=== PATIENT | female | born 1950 | race Caucasian/White ===

== ENCOUNTER → 2020-04-26 10:30 | Outpatient (CLI) | payer MEDICARE, SELFPAY ==
--- NOTE | ~2020-04-26 | DEXA_ITS ---
Bone Density Report Name: Tracy Hamm Age: 69 Sex: Female Ethnicity: White Date of : 1950 Indication: osteopenia; monitoring treatment; hysterectomy; Referring Provider: MIKKI ALLEN PA-C Study: Bone densitometry was performed. Exam Date: April 26, 2020 Accession number: [id number] Bone Density: Region BMD T-score Z-score Classification AP Spine (L1-L4) 1.002 -0.4 1.6 Normal Femoral Neck (Left) 0.676 -1.6 0.1 Osteopenia Total Hip (Left) 0.747 -1.6 -0.2 Osteopenia Femoral Neck (Right) 0.685 -1.5 0.2 Osteopenia Total Hip (Right) 0.767 -1.4 0.0 Osteopenia Total Hip Mean 0.757 -1.5 -0.1 Osteopenia World Health Organization criteria for BMD impression classify patients as: Normal (T-score at or above -1.0), Osteopenia (T-score between -1.0 and -2.5), or Osteoporosis (T-score at or below -2.5). 10-year Fracture Risk: FRAX not reported because: Treated for osteoporosis Previous Exams: Region Exam Age BMD T-score BMD Change BMD Change Date g/cm2 vs Baseline vs Previous AP Spine(L1-L4) 04/26/2020 69 1.002 -0.4 -0.077* 0.038* 05/08/2016 66 0.964 -0.8 -0.115* -0.115* 03/10/2010 59 1.080 0.3 Total Hip(Left) 04/26/2020 69 0.747 -1.6 -0.072* -0.002 05/08/2016 66 0.750 -1.6 -0.069* -0.069* 03/10/2010 59 0.819 -1.0 Total Hip(Right) 04/26/2020 69 0.767 -1.4 -0.069* 0.027 05/08/2016 66 0.740 -1.7 -0.096* -0.096* 03/10/2010 59 0.836 -0.9 *Denotes significance at 95% confidence level, LSC for AP Spine = 0.022 g/cm2, LSC for Total Hip = 0.027 g/cm2 Clinical Information Provided by Patient: Is being treated for osteoporosis Has used the following medications: HRT (i.e. estrogen/hormone therapy), Vitamin D, Calcium Has the following medical conditions: Hysterectomy Patient maximum height was 69 Menopause Age: 50 Does not regularly consume dairy products Drinks caffeinated beverages Onset of menses at age 15 Number of children 2 Impression: The patient has low bone mass, based on the Left Total Hip T-score. No significant bone loss was observed. Discussion: PATIENT UNDER TREATMENT WITH NO SIGNIFICANT BMD LOSS SINCE LAST EXAM. In an untreated patient, BMD typically declines with age. A lack of decline or gain is usually a sign that treatment is efficacious and fracture risk is reduced. It is important to ask pat
== END ==
PROVIDERS: PCP Family Medicine; Visit Provider Physician Assistant
DX: M85.89 Other specified disorders of bone density and structure, multiple sites (principal); Z78.0 Asymptomatic menopausal state
CPT/HCPCS: 77080

== ENCOUNTER 2020-10-17 09:41 | Outpatient (CLI) | payer MEDICARE, SELFPAY ==
--- NOTE | ~2020-10-17 | XR_ITS ---
EXAMINATION: XR chest 2V DATE: 10/17/2020 11:24 INDICATION: Gastroesophageal reflux disease. Preop. TECHNIQUE: Frontal and lateral views of the chest were obtained. COMPARISON: Chest 2 views 08/06/2013 FINDINGS: The chest demonstrates clear lungs without pneumonia, pleural effusion, or pneumothorax. Th e heart size is normal. IMPRESSION: 1. No acute cardiopulmonary disease. Reviewed, dictated and finalized at location A. R MAKING MACHINE OPERATOR
--- NOTE | 2020-10-17 10:53 | ECG_ITS ---
Measurements Intervals [place] Rate: 61 P: 62 [place]: 174 QRS: -9 QRSD: 106 T: 7 QT: 404 QTc: 408 Interpretive Statements SINUS RHYTHM LOW QRS VOLTAGE IN PRECORDIAL LEADS INCOMPLETE RIGHT BUNDLE BRANCH BLOCK BASELINE ARTIFACT- I, II, III, AVR, AVL, AVF BORDERLINE ECG Electronically Signed On 10-17-2020 11:20:15 ELECTRICAL ELECTRONICS ENGINEER by Bird Schneider D.O.
[2020-10-17 11:30] LABS: Basophils Absolute Auto 0.1 K/mm3 (0.0-0.1); Basophils Percent Auto 1.1 % (0.2-1.2); Eosinophils Absolute Auto 0.2 K/mm3 (0-0.3); Eosinophils Percent Auto 4.4 % (0-4.4); Hematocrit 39.1 % (37.0-47.0); Hemoglobin 12.9 g/dL (12.0-15.0); Immature Granulocyte Absolute 0.01 K/mm3 (0.00-0.031); Immature Granulocyte Percent A 0.2 % (0-0.5); Lymphocytes Absolute Auto 1.54 K/mm3 (0.9-3.2); Lymphocytes Percent Auto 33.9 % (18.3-44.2); Mean Corpuscular Hemoglobin 29.8 pg (26-34); Mean Corpuscular Volume 90.3 fl (80-100); Mean Platelet Volume 10.2 fl (7.4-10.4); Monocytes Absolute Auto 0.4 K/mm3 (0.1-0.6); Monocytes Percent Auto 8.1 % (2.6-8.5); Neutrophils Absolute Auto 2.4 K/mm3 (1.3-6.7); Neutrophils Percent Auto 52.3 % (45.5-73.1); Platelet Count Result 333 k/mm3 (150-375); Red Blood Count 4.33 M/mm3 (4.2-5.4); Red Cell Distribution Width 11.9 % (11.5-14.5); White Blood Count 4.5 K/mm3 (4.5-10.0)
[2020-10-17 11:39] LABS: Urine Cotinine NEGATIVE
[2020-10-17 11:42] LABS: Albumin Level 3.9 g/dL (3.5-5.1); Anion Gap 4 mmol/L (8-16); Blood Urea Nitrogen 16 mg/dL (7-17); Carbon Dioxide 32 mmol/L (22-30); Chloride 102 mmol/L (98-107); Estimated Glomerular Filt Rate > 60; Glucose 96 mg/dL (65-105); Hemoglobin A1C 5.1 % (<5.7); Potassium 4.1 mmol/L (3.4-5.0); Sodium 138 mmol/L (137-145)
== END 2020-10-17 09:42 | disposition home or self-care (01) ==
PROVIDERS: PCP Family Medicine; Visit Provider Orthopaedic Surgery
DX: Z01.818 Encounter for other preprocedural examination (principal); M17.12 Unilateral primary osteoarthritis, left knee
CPT/HCPCS: 71046; 80048; 80307; 82040; 83036; 85025; 87070; 93005

== ENCOUNTER → 2020-10-20 12:12 | Outpatient (CLI) | payer MEDICARE, SELFPAY ==
--- NOTE | ~2020-10-20 | MM_ITS ---
EXAMINATION: MM screening dominique BI w marilou HISTORY: Screening TECHNIQUE: Craniocaudal and mediolateral oblique 3-D tomosynthesis images were obtained and synthetic 2-D images were generated. CAD analysis was submitted and interpreted. COMPARISON: Comparison to multiple prior studies sequentially, with oldest reviewed study dated 09/02. BREAST PARENCHYMAL COMPOSITION: The breasts are extremely dense, which lowers the sensitivity of mamm ography. FINDINGS: There is no evidence of suspicious mass, calcification, or architectural distortion to sugg est malignancy in either breast. There has been no suspicious interval change. IMPRESSION: 1. No mammographic evidence of malignancy. 2. Recommend routine screening mammography in one year. BI-RADS Category 1: Negative Reviewed, dictated and finalized at location A. ING MACHINE SETTER
== END ==
PROVIDERS: PCP Family Medicine; Visit Provider Family Medicine
DX: Z12.31 Encounter for screening mammogram for malignant neoplasm of breast (principal)
CPT/HCPCS: 77063; 77067

== ENCOUNTER → 2020-10-29 00:44 | Outpatient (CLI) | payer MEDICARE, SELFPAY ==
[2020-10-29 18:54] LABS: SARS-CoV-2 RNA PCR Negative
== END ==
PROVIDERS: PCP Family Medicine; Visit Provider Orthopaedic Surgery
DX: Z01.812 Encounter for preprocedural laboratory examination (principal); Z20.822 Contact with and (suspected) exposure to COVID-19
CPT/HCPCS: C9803; U0003; U0005

== ENCOUNTER 2020-11-02 00:16 | Day surgery (SDC) | payer MEDICARE, SELFPAY ==
[2020-10-17 09:52] VITALS: BMI 22.8
[2020-10-17 10:48] VITALS: BP 113/77; PULSE 72; RESP 16; TEMP 36.7; O2SAT 100
--- NOTE | 2020-10-31 15:56 | PM.IMHP ---
H&P: HPI History of Present Illness Date/Time: 10/31/20 15:56 70 y/o female patient of Dr. Bravo.Patient presents today for a left total knee arthroplasty. She has been having pain in this knee for several years. She has been treating nonsurgically with anti-inflammatories as well as occasional cortisone injections. She has reached a point where she is not getting good benefit from the injections or the medicine. She has pain on a daily basis. She would like to proceed with total knee arthroplasty at this point rather continue nonsurgical treatment. <MAX Shook - Last Filed: 10/31/20 16:35> Chief Complaint: Left knee DJD <MAX Shook - Last Filed: 10/31/20 16:35> Review of Systems Review of Systems: All systems reviewed & are unremarkable except as noted in HPI and below <MAX Shook - Last Filed: 10/31/20 16:35> COUNTS INCLUDE 234 BEDS AT THE [facility] Past Medical History Medical History: Medical History (Updated 11/01/20 @ 10:02 by Rikki Guajardo DO) Anxiety disorder, unspecified Depression GERD without esophagitis Normal colonoscopy (~2009) Osteoarthritis of spine with radiculopathy, cervical region Other hyperlipidemia Vitamin D deficiency (07/25/17) <MAX Shook - Last Filed: 10/31/20 16:35> Surgical History Surgical History: Surgical History H/O: hysterectomy <MAX Shook - Last Filed: 10/31/20 16:35> Family History Family History: Family History Father Cerebrovascular accident Mother Family history of malignant neoplasm Sibling Diabetes mellitus Family history of lung cancer, Onset Age: 76 Family history of malignant neoplasm of brain <MAX Shook - Last Filed: 10/31/20 16:35> Social History Social History: Social History Smoking status: Never smoker Second hand tobacco smoke exposure: No Additional smoking assessment comments: DENIES ANY FORM OF TOBACCO USE Alcohol intake: current Drinks per week: 2 Living arrangements: with family Spiritual care concerns: No <MAX Shook - Last Filed: 10/31/20 16:35> Meds Home Medications and Allergies Home medications: Home Medications Medication Instructions Recorded Confirmed Type rosuvastatin 5 mg tablet 5 mg PO DAILY #90 tablet 04/19/20 11/02/20 Rx calcium-vitamin D3-vitamin K 1 tablet PO DAILY 10/17/20 11/02/20 History [Viactiv] cetirizine [Zyrtec] 10 mg PO DAILY 10/17/20 11/02/20 History cranberry extract-vitamin C 1 cap PO DAILY 10/17/20 11/02/20 History cyanocobalamin (vitamin B-12) 1,000 mcg PO DAILY 10/17/20 11/02/20 History escitalopram oxalate 10 mg PO QAM 10/17/20 11/02/20 History jlbuubmk-ywvmx-iiyxs-CF borate 1 tablet PO QAM 10/17/20 11/02/20 History [Move Free Joint Health] levocetirizine [24HR Allergy 5 mg PO DAILY PRN 10/17/20 11/02/20 History Relief] melatonin 5 mg PO HS PRN 10/17/20 11/02/20 History vvtqdspu-uzp-ywloxxwg-herb 124 1 ea PO DAILY 10/17/20 11/02/20 History [Airborne (ascorbic acid)] multivitamin with minerals 1 tablet PO DAILY 10/17/20 11/02/20 History [Hair,Skin and Nails] naproxen sodium [Aleve] 440 mg PO HS 10/17/20 11/02/20 History vit C,F-Yp-qkthk-lutein-zeaxan 1 cap PO DAILY 10/17/20 11/02/20 History [Healthy Eyes Lutein-Zeaxanthin] <MAX Shook - Last Filed: 10/31/20 16:35> Allergies/Adverse reactions: Allergies Allergy/AdvReac Type Severity Reaction Status Date / Time bacitracin Allergy Intermediate blisters Verified 11/02/20 10:08 [From Neosporin ([id number])] neomycin Allergy Intermediate blisters Verified 11/02/20 10:08 [From Neosporin ([id number])] polymyxin B Allergy Intermediate blisters Verified 11/02/20 10:08 [From Neosporin (ngo-[id number])] <MAX Shook - Last Filed: 10/31/20 16:
[2020-11-02] VITALS (12 sets, daily range): BP systolic 116–143; BP diastolic 55–77; PULSE 73–94; RESP 10–18; TEMP 36.3–36.6; O2SAT 96–100
--- NOTE | ~2020-11-02 | XR_ITS ---
EXAMINATION: XR knee LT 2V EXAM DATE: 11/02/2020 16:19 INDICATION: Left knee arthroplasty. TECHNIQUE: Portable frontal, crosstable lateral projections left knee obtained immediately following arthroplasty. Procedure performed by Manuel Peralta MD. FINDINGS: Patient is status post total knee arthroplasty. The orthopedic hardware is in expected po sition. There is small amount of subcutaneous gas, gas within the knee joint space. Overlying soft tissue swelling. Correlate with procedure note. IMPRESSION: Status post total left knee arthroplasty. Reviewed, dictated and finalized at location A.
[2020-11-02] MEDS: ACETAMINOPHEN 500 MG TABLET 1000 MG PO ×3 (10:15→23:41)
--- NOTE | 2020-11-02 10:24 | WPDANESEPPF ---
Anes - Initial Pre Proc Eval Procedure: Operation Date: 11/02/20 12:00 Proposed Procedures p Left Total Knee Arthroplasty - Manuel Peralta MD Date/Time: 11/02/20 10:24 Surgeon: Manuel Peralta MD Pre Op Diagnosis: OA Left Knee Patient Data Age: 70 Gender: F Height: 1.75 m Weight: 69 kg Last Vital Signs Temp 36.7 C 10/17/20 10:48 Pulse 72 10/17/20 10:48 Resp 16 10/17/20 10:48 BP 113/77 10/17/20 10:48 Pulse Ox 100 10/17/20 10:48 Allergies Allergy/AdvReac Type Severity Reaction Status Date / Time bacitracin Allergy Intermediate blisters Verified 11/02/20 10:08 [From Neosporin ([id number])] neomycin Allergy Intermediate blisters Verified 11/02/20 10:08 [From Neosporin (lvz-hes-jdaic)] polymyxin B Allergy Intermediate blisters Verified 11/02/20 10:08 [From Neosporin ([id number]-vco-[id number])] Home Medications Medication Instructions Recorded Confirmed Type rosuvastatin 5 mg tablet 5 mg PO DAILY #90 tablet 04/19/20 11/02/20 Rx calcium-vitamin D3-vitamin K 1 tablet PO DAILY 10/17/20 11/02/20 History [Viactiv] cetirizine [Zyrtec] 10 mg PO DAILY 10/17/20 11/02/20 History cranberry extract-vitamin C 1 cap PO DAILY 10/17/20 11/02/20 History cyanocobalamin (vitamin B-12) 1,000 mcg PO DAILY 10/17/20 11/02/20 History escitalopram oxalate 10 mg PO QAM 10/17/20 11/02/20 History qlgqxgom-rujsi-ktmqi-CF borate 1 tablet PO QAM 10/17/20 11/02/20 History [Move Free Joint Health] levocetirizine [24HR Allergy 5 mg PO DAILY PRN 10/17/20 11/02/20 History Relief] melatonin 5 mg PO HS PRN 10/17/20 11/02/20 History mhmlvxrt-xhm-zyvlycst-herb 124 1 ea PO DAILY 10/17/20 11/02/20 History [Airborne (ascorbic acid)] multivitamin with minerals 1 tablet PO DAILY 10/17/20 11/02/20 History [Hair,Skin and Nails] naproxen sodium [Aleve] 440 mg PO HS 10/17/20 11/02/20 History vit C,S-Xf-gmlgq-lutein-zeaxan 1 cap PO DAILY 10/17/20 11/02/20 History [Healthy Eyes Lutein-Zeaxanthin] Patient hx anesthesia problems: none Family hx anesthesia problems: none PMFSH Past Medical History Medical History (Updated 11/01/20 @ 10:02 by Rikki Guajardo DO) Anxiety disorder, unspecified Depression GERD without esophagitis Normal colonoscopy (~2009) Osteoarthritis of spine with radiculopathy, cervical region Other hyperlipidemia Vitamin D deficiency (07/25/17) Surgical History Surgical History H/O: hysterectomy Family History Family History Father Cerebrovascular accident Mother Family history of malignant neoplasm Sibling Diabetes mellitus Family history of lung cancer, Onset Age: 76 Family history of malignant neoplasm of brain Social History Social History Smoking status: Never smoker Second hand tobacco smoke exposure: No Additional smoking assessment comments: DENIES ANY FORM OF TOBACCO USE Alcohol intake: current Drinks per week: 2 Living arrangements: with family Spiritual care concerns: No Anes - Eval Final PreProcedure Day of Procedure 11/02/20 10:24 Patient weight: normal Heart: regular rate and rhythm Lungs: clear to auscultation and normal air movement Airway: Mallampati scale class II Neurological: alert and oriented Last oral intake: >/= 8 hours ASA classification: II Emergent: no Anesthetic plan: proceed Anesthesia type and monitoring: general LMA and standard monitoring Informed Consent: The patient's anesthetic plan and its attendant risks and benefits were discussed with the patient/family/POA. Questions were solicited and answers provided to the satisfaction of the patient/family/POA.
[2020-11-02] MEDS: LACTATED RINGERS 1,000 ML 30 ML IV CONT ×2 (10:33→16:07)
--- NOTE | 2020-11-02 11:39 | WPDHPUPDATE1 ---
History and Physical Update Update Date/Time: 11/02/20 11:39 History and Physical has been reviewed, including an updated exam of the patient. There are NO changes in the patient's condition. Risks, benefits, and alternatives have been discussed and questions answered. Patient agrees to proceed with procedure.
[2020-11-02] MEDS: TRANEXAMIC ACID 1,000MG/ISO100 1,000 MG/100 ML BAG 200 MG IVPB (11:42)
[2020-11-02] MEDS: ceFAZolin 2 GM/D5W 50 ML 2 GM/50 ML BAG IVPB (12:01)
[2020-11-02] MEDS: ceFAZolin SODIUM 1 GM VIAL 3 GM IRRIGATION (12:47)
--- NOTE | 2020-11-02 12:53 | PHAR ---
CHECKED WITH OR ON USING GENT BONE CEMENT WITH NEOSPORIN (NEOMYCIN) ALLERGY. WAS TOLD DR DIALLO WAS AWARE AND DID WANT TO CONTINUE WITH THE GENT BONE CEMENT
[2020-11-02] MEDS: GENTAMICIN BONE CEMENT REFOBACIN 1 EACH TOPICAL (13:36)
[2020-11-02] MEDS: ceFAZolin SODIUM 1 GM VIAL IV PUSH (15:16)
[2020-11-02] MEDS: TRANEXAMIC ACID 1,000 MG/10 ML AMPUL 1000 MG IV PUSH (15:17)
--- NOTE | 2020-11-02 16:40 | PM.PROC ---
Procedure Note - Detailed Date of procedure: 11/02/20 Pre-op diagnosis: OA Left Knee Post-op diagnosis: same Procedure performed: Left total knee arthroplasty Description of procedure: Patient was brought to the operating room and general anesthesia was administered the left knee prepped draped usual fashion. She received 2 g of Ancef weight based vancomycin 1 g of tranexamic acid preoperatively. Limb was exsanguinated tourniquet elevated to 250 than 275 mmHg. A 7 in longitudinal midline incision was used and a vastus medialis splitting approach was utilized splitting the vastus medialis at the level of the superior pole of patella. Infrapatellar and suprapatellar fat pads were excised the quadriceps synovectomy carried out. There were minimal osteophytes around the patella that were debrided and the cartilage on the patella was normal and I felt most suitable for non resurfacing. A guide chino was inserted down the femoral canal after aspiration of canal contents. The guide chino was positioned a little bit medial in the hole and I felt the 5 degree valgus guide would be appropriate and 10 mm of bone removed from the distal femur medially. This removed about 5 laterally. Next the tibial plateau was cut. We tried to make a skim cut because of absence of posterior slope and we had to recut removing another 2 mm to have the cut reach all the way to the posterior aspect of the tibial plateau which was a skim cut and alignment confirmed. This was placed in 0 degree slope. The PCL was protected and island of bone in front of the PCL preserved. At this time the medial side of the joint was 7 mm at 90? in the lateral side 13 mm. The femoral sizing guide was set at 7? of external rotation which matched [place] line exactly. Posterior referencing pin holes were placed in the femur was cut to a size 65. This was a little bit too wide medial laterally and a little bit to proud anteriorly and the proximal aspect of the [place] sitting off cortex about 2 mm. With the 67 tibial trial and 10 CR insert we had ample play in flexion both medially and laterally. The knee lacked just couple of degrees of extension with a barely positive bounce test. The tibia was sized to a 67 which fit line to line anteromedially and posterolaterally. This was punched and we trialed the 11 insert CR more appropriate in flexion. However the knee lacked about a couple of degrees in extension at this time. An additional 1 mm of bone was removed the distal femur and satisfied with the rotational alignment and flexion medial collateral balance we downsized the femur to the 62.5 which fit line to line medial to lateral and was a nice fit on the anterior cortex. And the posterior femoral osteophytes removed. We trialed and at this time the knee came out just to full extension with a negative bounce in had appropriate stability at 90? and deep flexion however I did not like where the femur sat the tibia. It was translated too far posteriorly right at the posterior lip medially. With the 10 there was excessive anterior drawer laxity and she would have had flexion stability.. Therefore I felt the best course of action was to convert to anterior stabilized. The tourniquet was released at 90 minutes. The PCL released from the intercondylar notch and a conservative central posterior capsular release performed. On trialing the 13 mm trial was appropriate now at 90? of flexion with respect anterior loom setter fourdrinier deep flexion. We were far too tight in extension again. Additional 2 mm of bone were then removed the distal femur the chamfer cuts revisited. We read trialed and once again the 13 mm trial was excellent in flexion with about 2 mm of anterior drawer at 90? without a tight feel and a mm of opening with a Galvez elevator at 90 both medially and laterally. [place] flexion was to 145?. And, the knee came out to full extension with negative bounce. In full extension we had 2 mm of medial opening 1 mm of later
--- NOTE | 2020-11-02 17:04 | SUR.PHASEI ---
PT AWAKE, RESTING QUIETLY. DENIES PAIN OR NAUSEA.
--- NOTE | 2020-11-02 18:08 | ADMGEN ---
This patient, Tracy Hamm, was admitted to Medical Room 241-01. Patient/family oriented to hospital policies and general routines including ID bracelet, bed and alarms, visiting hours, pain management, procedures, bathroom and other care routines, personal items, smoking policy, room service/diet, and visiting hours. Information on how to activate the Rapid Response Team has been discussed. Patient/Family are encouraged to report perceived risks to care and to ask questions if they do not understand what they are told or what they should do.
[2020-11-02] MEDS: SENNA/DOCUSATE SODIUM TABLET 2 TAB PO (19:30)
[2020-11-02] MEDS: oxyCODONE HCL (*CRX) 5 MG TAB IR PO ×2 (20:10→23:38)
[2020-11-02] MEDS: LORATADINE 5 MG TABLET PO (22:23)
[2020-11-02] MEDS: MELATONIN 5 MG TABLET PO (22:23)
[2020-11-03] MEDS: ONDANSETRON INJ 4 MG/2 ML VIAL IV PUSH (00:55)
[2020-11-03] MEDS: diphenhydrAMINE HCl INJ 50 MG/ML VIAL IV PUSH (00:55)
[2020-11-03 01:17] VITALS: BP 122/46; PULSE 86; RESP 16; TEMP 36.4; O2SAT 95
[2020-11-03 03:15] VITALS: BP 122/46; PULSE 86; RESP 16; TEMP 36.4; O2SAT 95
[2020-11-03] MEDS: oxyCODONE HCL (*CRX) 2.5 MG TAB IR PO ×3 (04:27→13:27)
[2020-11-03 05:06] VITALS: BP 128/58; PULSE 85; RESP 16; TEMP 36.8; O2SAT 94
[2020-11-03] MEDS: ACETAMINOPHEN 500 MG TABLET 1000 MG PO ×2 (05:19→11:24)
[2020-11-03 05:54] LABS: Anion Gap 3 mmol/L (8-16); Blood Urea Nitrogen 10 mg/dL (7-17); Carbon Dioxide 30 mmol/L (22-30); Chloride 99 mmol/L (98-107); Estimated CRCL calculation 80 ml/min; Estimated Glomerular Filt Rate > 60; Glucose 158 mg/dL (65-105); Potassium 3.9 mmol/L (3.4-5.0); Sodium 132 mmol/L (137-145)
[2020-11-03 05:55] LABS: Basophils Percent Auto 0.3 % (0.2-1.2); Hematocrit 35.6 % (37.0-47.0); Hemoglobin 11.8 g/dL (12.0-15.0); Immature Granulocyte Absolute 0.05 K/mm3 (0.00-0.031); Immature Granulocyte Percent A 0.4 % (0-0.5); Lymphocytes Absolute Auto 0.65 K/mm3 (0.9-3.2); Lymphocytes Percent Auto 4.6 % (18.3-44.2); Mean Corpuscular HGB Conc 33.1 g/dl (32-36); Mean Corpuscular Hemoglobin 30.1 pg (26-34); Mean Corpuscular Volume 90.8 fl (80-100); Mean Platelet Volume 10.4 fl (7.4-10.4); Monocytes Absolute Auto 0.4 K/mm3 (0.1-0.6); Monocytes Percent Auto 3.1 % (2.6-8.5); Neutrophils Absolute Auto 12.9 K/mm3 (1.3-6.7); Neutrophils Percent Auto 91.6 % (45.5-73.1); Platelet Count Result 341 k/mm3 (150-375); Red Blood Count 3.92 M/mm3 (4.2-5.4); White Blood Count 14.1 K/mm3 (4.5-10.0)
--- NOTE | 2020-11-03 07:16 | PM.PNORT ---
Progress Note: A&P Additional Plan POD 1 alert avss , pt was having a lot of nausea last night, doing much better this am, has been up to restroom overnight, pain is well controlled, wd-dry NVI plan to have pt work with PT today for both sessions then d/c to home this afternoon Subjective Subjective Date/Time Seen: 11/03/20 07:16 Objective Data Vital Signs Vital Signs: Vital Signs - 24 hr 11/02/20 09:54 11/02/20 16:07 11/02/20 16:20 Temperature 36.6 C 36.3 C L Pulse Rate 73 81 90 Respiratory Rate 16 10 L 16 Blood Pressure 120/77 116/68 126/76 Pulse Oximetry 99 99 98 11/02/20 16:35 11/02/20 16:50 11/02/20 17:05 Temperature Pulse Rate 90 85 88 Respiratory Rate 14 14 12 Blood Pressure 126/77 130/67 122/68 Pulse Oximetry 99 99 96 11/02/20 17:20 11/02/20 17:55 11/02/20 18:10 Temperature 36.5 C 36.3 C L Pulse Rate 86 78 92 Respiratory Rate 14 18 18 Blood Pressure 126/64 124/58 L 130/56 L Pulse Oximetry 99 96 98 11/02/20 18:45 11/02/20 19:15 11/02/20 22:28 Temperature 36.4 C 36.5 C 36.5 C Pulse Rate 93 94 94 Respiratory Rate 18 16 16 Blood Pressure 123/55 L 143/65 H 143/65 H Pulse Oximetry 96 100 100 11/03/20 01:17 11/03/20 03:15 11/03/20 05:06 Temperature 36.4 C L 36.4 C L 36.8 C Pulse Rate 86 86 85 Respiratory Rate 16 16 16 Blood Pressure 122/46 L 122/46 L 128/58 L Pulse Oximetry 95 95 94 Intake/Output Intake/Output: Intake & Output 10/31/20 11/01/20 11/02/20 11/03/20 23:59 23:59 23:59 23:59 Intake Total 950 400 Output Total 1200 Balance 950 -800 Meds/Results Medications: Active Medications Generic Name Dose Route Start Last Admin Trade Name Freq PRN Reason Stop Dose Admin Acetaminophen 1,000 mg 11/02/20 18:00 11/03/20 05:19 Acetaminophen 500 Mg Tablet PO 1,000 mg Q6HR MELODY Administration Apixaban 2.5 mg 11/03/20 09:00 Apixaban 2.5 Mg Tablet PO 11/14/20 21:01 Q12HR [facility] Celecoxib 200 mg 11/03/20 08:00 Celecoxib 200 Mg Capsule PO DAILY@0800 [facility] Cyanocobalamin 1,000 mcg 11/03/20 09:00 Cyanocobalamin 1,000 Mcg Tablet PO DAILY [facility] Diphenhydramine HCl 50 mg 11/03/20 00:41 11/03/20 00:55 Diphenhydramine Hcl Inj 50 Mg/Ml Vial IV PUSH 50 mg Q6H PRN Administration Itching Escitalopram Oxalate 10 mg 11/03/20 09:00 Escitalopram Oxalate 10 Mg Tablet PO QAM [facility] Cefazolin Sodium 1 gm in 50 mls @ 100 mls/hr 11/02/20 20:00 11/03/20 04:27 Ancef 1 Gm/D5w 50 Ml Pm IVPB 11/03/20 12:29 100 mls/hr Q8H MELODY Administration Vancomycin HCl 1,000 mg in 250 mls @ 250 mls/hr 11/02/20 22:30 11/03/20 05:21 Vancomycin 1,000 Mg/D5w 250 Ml IVPB 11/03/20 11:29 100 mls/hr Q12H [facility] Infusion Loratadine 10 mg 11/03/20 09:00 Loratadine 10 Mg Tablet PO QAM [facility] Loratadine 5 mg 11/02/20 17:45 11/02/20 22:23 Loratadine 5 Mg Tablet PO 5 mg DAILY PRN Administration Allergy Symptoms Melatonin 5 mg 11/02/20 17:30 11/02/20 22:23 Melatonin 5 Mg Tablet PO 5 mg HS PRN Administration Insomnia Morphine Sulfate 2 mg 11/02/20 17:30 Morphine Sulfate (*Crx) 2 Mg/Ml Inj IV PUSH Q1HR PRN Pain Rated 7-10 Multivitamins/Calcium 1 tablet 11/03/20 09:00 Therapeutic Multivitamins/Minerals Tab (*Bkc) PO DAILY [facility] Multivitamins/Minerals 1 tablet 11/03/20 09:00 Opti-Gen Tab PO QAM [facility] Naloxone HCl 0.1 mg 11/02/20 17:30 Naloxone Hcl 0.4 Mg/Ml Vial IV PUSH Q2M PRN Opiate Reversal Ondansetron HCl 4 mg 11/03/20 00:39 11/03/20 00:55 Ondansetron Inj 4 Mg/2 Ml Vial IV PUSH 4 mg Q6H PRN Administration Nausea And Vomiting Oxycodone HCl 5 mg 11/02/20 17:30 11/02/20 23:38 Oxycodone Hcl (*Crx) 5 Mg Tab Ir PO 5 mg Q4H PRN Administration Pain Rated 7-10 Oxycodone HCl 2.5 mg 11/03/20 01:45 11/03/20 04:27 Oxycodone Hcl (*Crx) 2.5 Mg Tab Ir PO 2.5 mg Q4HR MELODY Administration Polyethylene Glycol 17 gm
--- NOTE | 2020-11-03 07:24 | PM.DS ---
DS: Admitting Diagnosis Admitting Diagnosis Admitting Diagnosis: left knee DJD DS: Summary Hospital Course Hospital Course: stable Time Spent with Patient Time attestation: 70-year-old female who underwent left total knee arthroplasty on 11/02/20. Underwent the procedure without any complications postoperatively she had quite a bit of nausea on the evening of surgery. This was treated with some Benadryl as well as Decadron and Zofran. Nausea is completely dissipated by the morning of postop day 1. Her pain is well controlled. She is on oxycodone 2.5 mg as well as scheduled Tylenol she is also Celebrex 200 mg daily. Patient has been up to the restroom and is comfortable. She will work with Physical therapy on postop day 1 to make sure that she is walking around well and also work on range of motion. Her wound is dry, neurovascularly she is intact. She will be discharged to home on 11/03. Patient was advised to keep leg elevated at home to prevent swelling but also to her exercises on a regular basis during the day. She has outpatient therapy starting next Saturday. Patient was advised any questions or concerns she should call the office otherwise we will see her at her appointed date. At the time of dictation morning labs were not completed. We will check on these later today before discharge. Patient is also going on MiraLax Senokot for constipation. She is on Eliquis for 2 weeks for DVT prophylaxis and will start a baby aspirin twice a day after that. DS: Data Data Completed and Pending Labs on day of discharge: Labs from last 24 hours 11/03/20 11/03/20 11/02/20 05:05 05:05 10:02 WBC Pending RBC Pending Hgb Pending Hct Pending MCV Pending MCH Pending MCHC Pending RDW Pending Plt Count Pending MPV Pending Immature Gran % (Auto) Pending Neut % (Auto) Pending Lymph % (Auto) Pending [place] % (Auto) Pending Eos % (Auto) Pending Baso % (Auto) Pending Lymph # (Auto) Pending [place] # (Auto) Pending Eos # (Auto) Pending Baso # (Auto) Pending Abs Immat Gran (auto) Pending Absolute Neuts (auto) Pending Absolute Nucleated RBC Pending Nucleated RBC % Pending Sodium 132 L Potassium 3.9 Chloride 99 Carbon Dioxide 30 Anion Gap 3 L BUN 10 D Creatinine 0.60 L Estim Creat Clear Calc 80 Estimated GFR > 60 Glucose 158 H Calcium 9.0 Blood Type A Positive Antibody Screen Negative Discharge Plan Discharge Patient Disposition: Home, Self-Care Discharge Instructions: MANUEL PERALTA M.D [facility] [place] [address] POST-OPERATIVE DISCHARGE INSTRUCTIONS TOTAL KNEE ARTHROPLASTY 1. When resting, lie on back with leg elevated above hear to minimize swelling. Significant swelling could indicate a blood clot and if this occurs call the office (or go to the ER) to have a venous ultrasound. 2. Do exercise 5 times a day. 3. Do not sit with leg down except for meals. 4. Wound Care: Nursing will give additional dressings at discharge. Patient to change dressing at home 1 week from surgery, then maintain until seen in office. 5. May shower with dressing in place. 6. Follow weight bearing status instructions. Patient Instructions: Antibiotic Form, Apixaban (By mouth), Knee Replacement (DC) Follow-up/Referrals: Manuel Peralta MD [Physician] - Keep Reg. Scheduled Appt. Discharge Medications: New acetaminophen 500 mg Tablet 1,000 mg PO Q6HR Qty: 90 RF: 0 Eliquis 2.5 mg Tablet 2.5 mg PO Q12HR Qty: 27 RF: 0 celecoxib [Celebrex] 200 mg Capsule 200 mg PO DAILY@0800 Qty: 14 RF: 0 sennosides-docusate sodium [Senokot-S] 8.6-50 mg Tablet 2 tab-cap PO BID Qty: 60 RF: 0 polyethylene glycol 3350 [Miralax] 17 gram Powder In Packet 17 g PO QAM Qty: 30 RF: 0 oxycodone 5 mg Tablet 5 mg PO Q4H Qty: 30 RF:
--- NOTE | 2020-11-03 08:16 | PM.IMCN ---
Assessment and Plan Assessment and plan (1) Status post total left knee replacement: Code(s): Z96.652 - Presence of left artificial knee joint Status: Acute Assessment and Plan: She underwent left total knee arthroplasty on 11/02/[address] Peralta. Tolerated the procedure well. Pain is well controlled. She has participated in PT/OT. She will return home with her and will begin outpatient therapy on Saturday. She will follow-up with Orthopedic surgery as scheduled. She will begin Eliquis for 2 weeks for DVT prophylaxis per Orthopedic surgery. I have instructed her to avoid Celebrex, which she states she no longer takes, and other NSAIDs while taking this medication. (2) Anxiety disorder, unspecified: Code(s): F41.9 - Anxiety disorder, unspecified Status: Acute Assessment and Plan: Mood is stable at this time. Continue escitalopram. (3) Leukocytosis: Code(s): D72.829 - Elevated white blood cell count, unspecified Status: Acute Assessment and Plan: WBC elevated at 14.1, noted on AM labs. This is likely reactive secondary to surgery. No signs or symptoms to suggest underlying infection. She is afebrile. Pre-op labs from 10/17/20 demonstrate normal WBC at 4.5. (4) Other hyperlipidemia: Code(s): E78.49 - Other hyperlipidemia Status: Acute Assessment and Plan: Continue low-dose rosuvastatin. HPI Data of Consult Consult date: 11/03/20 Requesting Physician: Manuel Peralta MD Primary Care Provider: Madeline Bravo MD Consult Narrative Narrative: Date of admission: 11/02/2020 Date of discharge: 11/03/2020 Tracy Hamm is a 70 year old female with history of osteoarthritis, GERD, anxiety, and depression who post left total knee arthroplasty on 11/02/[address] Peralta. She tolerated the procedure well and pain is well controlled at this time. She reports last night, after her nerve block wore off, she was having significant pain, but this has improved with analgesics. She has been up and walking with physical therapy is doing well. At rest, she states her pain is 5/10. She had nausea postoperatively but this has improved. She is tolerating regular diet. She plans to return home, where she lives with her , and will begin outpatient PT. She does not have stairs to climb at home. Supervising physician for this consultation is Dr. Rea Flannery. Review of Systems Review of Systems: Narrative: All systems reviewed with pertinent positives and negatives as per HPI. Additionally, she complains of sinus drainage and seasonal allergies that improved with Claritin. She denies shortness of breath, cough, chest pain, palpitations. Denies abdominal pain. No fevers, chills, dizziness, lightheadedness, or weakness. No episodes of bleeding. Last bowel movement was 1 day prior to surgery. Denies any urinary symptoms. No weight changes. No dysphagia. Her mood is stable. [facility] Past Medical History Medical History (Updated 11/03/20 @ 11:34 by Kelin Painting PA-C) Anxiety disorder, unspecified Depression Normal colonoscopy (~2009) Osteoarthritis of spine with radiculopathy, cervical region Other hyperlipidemia Vitamin D deficiency (07/25/17) Surgical History Surgical History (Updated 11/03/20 @ 11:26 by Kelin Painting PA-C) H/O: hysterectomy History of section x2 History of total left knee replacement (~10/2020) Family History Family History (Updated 11/03/20 @ 11:27 by Kelin Painting PA-C) Father Cerebrovascular accident Mother Leukemia Sibling Diabetes mellitus Family history of lung cancer, Onset Age: 76 Family history of malignant neoplasm of brain Social History Social History (Updated 11/03/20 @ 11:28 by Kelin Painting PA-C) Social History: Ms. Hamm lives at home with her . She has 2 adult daughters. She is retired. She designates her husban
[2020-11-03] MEDS: SENNA/DOCUSATE SODIUM TABLET 2 TAB PO (08:55)
[2020-11-03] MEDS: CELECOXIB 200 MG CAPSULE PO (08:57)
[2020-11-03] MEDS: APIXABAN 2.5 MG TABLET PO (08:57)
[2020-11-03] MEDS: CYANOCOBALAMIN 1,000 MCG TABLET 1000 MCG PO (08:59)
[2020-11-03] MEDS: ESCITALOPRAM OXALATE 10 MG TABLET PO (09:00)
[2020-11-03] MEDS: LORATADINE 10 MG TABLET PO (09:01)
[2020-11-03] MEDS: THERAPEUTIC MULTIVITAMINS/MINERALS TAB (*BKC) 1 TABLET PO (09:01)
[2020-11-03] MEDS: ROSUVASTATIN 5 MG TABLET PO (09:02)
[2020-11-03] MEDS: polyethylene glycoL 3350 17 GM POWD.PACK PO (09:02)
[2020-11-03] MEDS: OPTI-GEN TAB 1 TABLET PO (09:02)
[2020-11-03 10:57] VITALS: BP 120/63; PULSE 84; RESP 16; TEMP 36.7; O2SAT 96
[2020-11-03 14:00] VITALS: BP 123/48; PULSE 77; RESP 16; TEMP 36.7; O2SAT 98
== END 2020-11-03 15:15 | disposition home or self-care (01) ==
LOC: ANHSURGERY 09:43 → ANH2MED 17:36
PROVIDERS: PCP Family Medicine; Visit Provider Orthopaedic Surgery
PROC: (CPT 27447; principal; 2020-11-02 12:00)
DX: M17.12 Unilateral primary osteoarthritis, left knee (principal); F41.9 Anxiety disorder, unspecified; F32.9 Major depressive disorder, single episode, unspecified; K21.9 Gastro-esophageal reflux disease without esophagitis; E55.9 Vitamin D deficiency, unspecified; E78.5 Hyperlipidemia, unspecified
CPT/HCPCS: 27447; 36415; 71046; 73560; 80048; 80307; 82040; 83036; 85025; 86850; 86900; 86901; 87070; 93005; 97110; 97116; 97161; 97165; 97530; A9270; C1713; C1776; C9803; J0171; J0690; J1100; J1170; J1200; J2250; J2270; J2405; J2704; J2795; J3010; J3370; J7120; U0003; U0005

== ENCOUNTER 2021-01-03 12:26 | Outpatient (CLI) | payer MEDICARE, SELFPAY ==
--- NOTE | ~2021-01-03 | XR_ITS ---
XR chest 2V DATE: 01/03/2021 12:42 INDICATION: Cough for one month TECHNIQUE: PA and lateral views COMPARISON: 10/17/2020 PA and lateral chest FINDINGS: Heart size is within normal range with left ventricular prominence. No hilar or mediastinal enlargement. No pulmonary infiltrate or consolidation, pleural effusion or pulmonary vascular congestion or pneumo thorax is evident. Diffuse osteopenia. Minimal dextroscoliosis and mild degenerative change of the thoracic spine. No suspicious osteolytic or osteoblastic lesions. IMPRESSION: No active cardiopulmonary disease Reviewed, dictated and finalized at location B.
== END 2021-01-03 12:27 | disposition home or self-care (01) ==
PROVIDERS: PCP Family Medicine; Visit Provider Family Medicine
DX: R05 Cough (principal); M85.88 Other specified disorders of bone density and structure, other site
CPT/HCPCS: 71046

== ENCOUNTER → 2021-12-04 12:03 | Outpatient (CLI) | payer MEDICARE, SELFPAY ==
--- NOTE | ~2021-12-04 | MM_ITS ---
EXAMINATION: MM screening dominique BI w marilou HISTORY: Screening mammogram TECHNIQUE: Craniocaudal and mediolateral oblique 3-D tomosynthesis images were obtained and synthetic 2-D images were generated. CAD analysis was submitted and interpreted. COMPARISON: 10/202008/28/2019, 06/12/2018 bilateral screening mammogram examinations BREAST PARENCHYMAL COMPOSITION: The breasts are heterogeneously dense, which may obscure small masses . FINDINGS: Scattered bilateral benign calcifications. Biopsy marker on the right; history of prior benign breast biopsy. There is no evidence of suspicious mass, calcification, or architectural distortion to suggest malignancy in either breast. There has b een no suspicious interval change. IMPRESSION: 1. No mammographic evidence of malignancy. 2. Recommend routine screening mammography in one year. BI-RADS Category 2: Benign finding(s). Reviewed, dictated and finalized at location A.
== END ==
PROVIDERS: PCP Family Medicine; Visit Provider Family Medicine
DX: Z12.31 Encounter for screening mammogram for malignant neoplasm of breast (principal)
CPT/HCPCS: 77063; 77067

== ENCOUNTER 2022-11-29 18:22 | Emergency (ER) | payer MEDICARE, SELFPAY ==
[2022-11-29] VITALS (7 sets, daily range): BP systolic 102–134; BP diastolic 63–79; PULSE 64–89; RESP 15–20; TEMP 36.6; O2SAT 94–99
--- NOTE | 2022-11-29 18:28 | ECG_ITS ---
Measurements Intervals [place] Rate: 62 P: 55 MS: 165 QRS: 0 QRSD: 109 T: 19 QT: 411 QTc: 420 Interpretive Statements SINUS RHYTHM LOW QRS VOLTAGE IN PRECORDIAL LEADS INCOMPLETE RIGHT BUNDLE-BRANCH BLOCK BORDERLINE ECG COMPARED TO ECG 10/17/2020 11:34:56 NO SIGNIFICANT CHANGES Electronically Signed On 11-30-2022 16:34:35 CDT by Luis Parisi M.D.
[2022-11-29 19:05] LABS: Basophils Percent Auto 0.6 % (0.2-1.2); Eosinophils Absolute Auto 0.2 K/mm3 (0-0.3); Eosinophils Percent Auto 3.4 % (0-4.4); Hematocrit 36.5 % (37.0-47.0); Hemoglobin 11.9 g/dL (12.0-15.0); Immature Granulocyte Absolute 0.01 K/mm3 (0.00-0.031); Immature Granulocyte Percent A 0.2 % (0-0.5); Lymphocytes Absolute Auto 1.46 K/mm3 (0.9-3.2); Lymphocytes Percent Auto 28.9 % (18.3-44.2); Mean Corpuscular HGB Conc 32.6 g/dl (32-36); Mean Corpuscular Hemoglobin 30.2 pg (26-34); Mean Corpuscular Volume 92.6 fl (80-100); Mean Platelet Volume 10.4 fl (7.4-10.4); Monocytes Absolute Auto 0.5 K/mm3 (0.1-0.6); Monocytes Percent Auto 9.5 % (2.6-8.5); Neutrophils Absolute Auto 2.9 K/mm3 (1.3-6.7); Neutrophils Percent Auto 57.4 % (45.5-73.1); Platelet Count Result 301 k/mm3 (150-375); Red Blood Count 3.94 M/mm3 (4.2-5.4); Red Cell Distribution Width 12.2 % (11.5-14.5); White Blood Count 5.1 K/mm3 (4.5-10.0)
[2022-11-29 19:15] LABS: Alanine Aminotransferase 25 U/L (6-35); Albumin Level 3.4 g/dL (3.5-5.1); Alkaline Phosphatase 38 U/L (38-126); Anion Gap 5 mmol/L (8-16); Aspartate Amino Transferase 25 U/L (14-36); Bilirubin,Total 0.4 mg/dL (0.2-1.3); Blood Urea Nitrogen 19 mg/dL (7-17); Calcium 8.1 mg/dL (8.4-10.2); Carbon Dioxide 26 mmol/L (22-30); Chloride 107 mmol/L (98-107); Estimated CRCL calculation 77 ml/min; Estimated Glomerular Filt Rate > 60; Glucose 140 mg/dL (65-110); Sodium 138 mmol/L (137-145)
[2022-11-29] MEDS: SODIUM CHLORIDE 0.9% IV 1,000 ML 999 ML IV CONT (19:42)
--- NOTE | 2022-11-29 20:22 | ED.GENADULT ---
HPI - General Adult General Chief complaint: Dizziness Stated complaint: dizzy/nausea Time Seen by Provider: 11/29/22 19:15 History of Present Illness HPI narrative: Patient 72-year-old female who presents the emergency department with chief complaint of near syncopal episode. Patient states that she was at [facility] had part of a florecita and then started getting very lightheaded felt diaphoretic and then may have had a brief episode where she can is slumped over and may have briefly lost consciousness for a second although the patient states that she does not remember passing out and remembers the whole episode. The patient states that currently she feels discounted tired and rundown but denies any focal weakness denies slurred speech denies issues with memory the patient states that she did take a CBD preparation today but it did not contain delta 8 or delta 10 THC Related Data Home Medications Medication Instructions Recorded Confirmed calcium-vitamin D3-vitamin K 500 1 tablet PO DAILY 10/17/20 10/02/22 mg-100 unit-40 mcg chewable tablet cetirizine 10 mg tablet (Zyrtec) 10 mg PO DAILY 10/17/20 10/02/22 cranberry extract-vitamin C 250 1 cap PO DAILY 10/17/20 10/02/22 mg-60 mg capsule cyanocobalamin (vitamin B-12) 1,000 mcg PO DAILY 10/17/20 10/02/22 1,000 mcg tablet melatonin 5 mg tablet 5 mg PO HS PRN Insomnia 10/17/20 10/02/22 llm-ljm-hmsjuugq acid 1,000 1 ea PO DAILY 10/17/20 10/02/22 mg-herbal 350 mg oral efferves powder pack (Airborne (ascorbic acid)) vit C,T-Pb-icwojj-lutein-zeaxan 60 1 cap PO DAILY 10/17/20 10/02/22 mg-13.5 mg-15 mg-2 mg-6 mg capsule (Healthy Eyes Lutein-Zeaxanthin) fluticasone propionate 50 1 spray intranasal DAILY PRN 09/18/21 10/02/22 mcg/actuation nasal spray,suspension Allergies Allergy/AdvReac Type Severity Reaction Status Date / Time bacitracin Allergy Intermediate blisters Verified 11/29/22 18:34 [From Neosporin ([id number])] neomycin Allergy Intermediate blisters Verified 11/29/22 18:34 [From Neosporin ([id number])] polymyxin B Allergy Intermediate blisters Verified 11/29/22 18:34 [From Neosporin ([id number])] Review of Systems Review of Systems: A 10 system review of systems was completed on the patient and is negative except for what is stated in the HPI. Nursing and ancillary documentation was reviewed. [facility] Past Medical History Medical History Anxiety disorder, unspecified Depression Normal colonoscopy (~2009) Osteoarthritis of spine with radiculopathy, cervical region Other hyperlipidemia Vitamin D deficiency (07/25/17) Surgical History Surgical History H/O: hysterectomy History of section x2 History of total left knee replacement (~10/2020) Family History Family History Father Cerebrovascular accident Mother Leukemia Sibling Diabetes mellitus Family history of lung cancer, Onset Age: 76 Family history of malignant neoplasm of brain Social History Social History Social History: Ms. Hamm lives at home with her . She has 2 adult daughters. She is retired. She designates her as her surrogate decision maker. She would like to be a full code. Smoking status: Never smoker Second hand tobacco smoke exposure: No Alcohol intake: current Drinks per week: 2 Substance use: never Substance use type: does not use Lack of Transportation: No Lack of Food: Never True Current Housing: I Have Housing Concerned About Future Housing: No Difficulty Paying Gas/Electric Bills: No Difficulty Paying for Meds: No Currently Unemployed: No Education: Associate Degree Difficulty w/ Childcare or Family Care:
[2022-11-29 20:32] LABS: Lactic Acid Reflex 1.5 mmol/L (0.7-2.0)
[2022-11-29 20:47] LABS: Magnesium 2.3 mg/dL (1.6-2.3); Troponin I < 0.012 ng/mL (0.000-0.034)
[2022-11-29 21:39] LABS: Appearance Urine Clear (Clear); Bacteria Urine None Seen /hpf; Bilirubin Urine Negative (Negative); Blood Urine Negative (Negative); Color Urine Yellow (Yellow); Glucose Urine UA Negative (Negative); Ketones Urine Negative (Negative); Leukocyte Esterase Ur Trace LEU/UL (Negative); Nitrate Urine Negative (Negative); Non Pathogenic Casts 0-2; Protein Urine Negative (Negative); RBC Urine 0-2 /hpf (0-2); Specific Grav Ur 1.021 (1.001-1.035); Squamous Epithelial Cell Urine None seen /hpf (Few); Urobilinogen Urine 0.2 mg/dL (<2.0); pH Urine 5.5 (5.0-9.0)
[2022-11-29 21:40] LABS: Add Urine Microscopic? YES
[2022-11-29] MEDS: CEPHALEXIN 500 MG CAPSULE PO (22:15)
== END 2022-11-29 22:16 | disposition home or self-care (01) ==
PROVIDERS: Emergency Medicine; Emergency Provider Emergency Medicine; PCP Family Medicine
DX: R55 Syncope and collapse (principal); N39.0 Urinary tract infection, site not specified; E78.49 Other hyperlipidemia; E55.9 Vitamin D deficiency, unspecified; M47.22 Other spondylosis with radiculopathy, cervical region; Z90.710 Acquired absence of both cervix and uterus; Z96.652 Presence of left artificial knee joint; I45.10 Unspecified right bundle-branch block
CPT/HCPCS: 36415; 80053; 81001; 83605; 83735; 84484; 85025; 87086; 93005; 96360; 99283; A9270; J7030

== ENCOUNTER → 2023-05-07 14:06 | Outpatient (CLI) | payer MEDICARE, SELFPAY ==
--- NOTE | ~2023-05-07 | MM_ITS ---
EXAMINATION: MM screening dominique BI w marilou HISTORY: Screening TECHNIQUE: Craniocaudal and mediolateral oblique 3-D tomosynthesis images were obtained and synthetic 2-D images were generated. CAD analysis was submitted and interpreted. COMPARISON: Comparison to multiple prior studies sequentially, with oldest reviewed study dated 04/16. BREAST PARENCHYMAL COMPOSITION: The breasts are extremely dense, which lowers the sensitivity of mamm ography FINDINGS: The left breast is stable without evidence for malignancy. There are nodular asymmetries in the medial aspect of the right breast on CC view. IMPRESSION: 1. Nodular right breast asymmetries medially. 2. Additional mammographic views and possible breast ultrasound are recommended. BI-RADS Category 0: Incomplete: Needs additional imaging evaluation. Reviewed, dictated and finalized at location A. IMPRESSION: 1. Nodular right breast asymmetries medially. 2. Additional mammographic views and possible breast ultrasound are recommended . BI-RADS Category 0: Incomplete: Needs additional imaging evaluation.
== END ==
PROVIDERS: PCP Family Medicine; Visit Provider Family Medicine
DX: Z12.31 Encounter for screening mammogram for malignant neoplasm of breast (principal); R92.8 Other abnormal and inconclusive findings on diagnostic imaging of breast
CPT/HCPCS: 77063; 77067

== ENCOUNTER → 2023-05-28 09:29 | Outpatient (CLI) | payer MEDICARE, SELFPAY ==
--- NOTE | ~2023-05-28 | MMUS_ITS ---
EXAMINATION: MM diagnostic dominique RT w marilou, US breast RT complete HISTORY: Nodular right breast asymmetries reported medially in the right breast on 05/07/2023 screenin g mammogram TECHNIQUE: Additional 3-D tomosynthesis images of the right breast were performed and synthetic 2-D i mages were generated. CAD analysis was submitted and interpreted. High resolution complete right alvin st ultrasound examination including all 4 quadrants and subareolar area was performed. COMPARISON: 05/07/2023 bilateral screening mammogram FINDINGS: MAMMOGRAPHIC FINDINGS: Biopsy marker in the upper mid right breast. History of prior bilateral benign right breast biopsies. There are scattered benign right breast calcifications. No malignant calcifications are noted. There is prominent somewhat nodular appearing fibroglandular stroma which may obscure nodular masses. No architectural distortion, skin thickening or retraction is detected. ULTRASOUND: 12:00 5 cm from nipple: 3.4 x 2.6 x 3.2 mm simple cyst 2:00 2 cm from nipple: Hypoechoic rounded 6.4 mm lesion with through transmission posterior enhanceme nt, without internal vascularity, benign in appearance. This is either a complicated benign cyst or b enign solid mass. 5:00 3 cm from nipple: Superficial 3.1 x 2.8 x 3 mm antiparallel mildly irregular hypoechoic mass wit h posterior shadowing. This lesion is suspicious. Ultrasound-guided biopsy is recommended. 9:00 10 cm from nipple: Circumscribed 4 x 3.8 x 4 mm hypoechoic lesion without internal vascularity, with through transmission, benign in appearance 10:00 7 cm from nipple: Circumscribed 6.6 x 7.1 x 5.7 mm hypoechoic lesion with through transmission posterior enhancement, no internal vascularity, benign in appearance IMPRESSION: 1. Superficial 3.1 x 2.8 x 3 mm and typed parallel mildly irregular hypoechoic shadowing mass of righ t breast at 5:00 3 cm from nipple 2. Ultrasound-guided biopsy of right breast 5:00 lesion 3 cm from nipple is recommended BI-RADS category 4, suspicious findings. Dr. Valera telephoned the report and right breast 5:00 ultrasound-guided biopsy recommendation on 05/28 at 1040 hours to office nurse voicemail at [phone]. Reviewed, dictated and finalized at location A. IMPRESSION: 1. Superficial 3.1 x 2.8 x 3 mm and typed parallel mildly irregular hypoechoic shadowing mass of right breast at 5:00 3 cm from nipple 2. Ultrasound-guided biopsy of right breast 5:00 lesion 3 cm from nipple is rec ommended BI-RADS category 4, suspicious findings. Dr. Valera telephoned the report and right breast 5:00 ultrasound-guided biopsy r ecommendation on 05/28/2023 at 1040 hours to office nurse voicemail at [phone]. IMPRESSION: 1. Superficial 3.1 x 2.8 x 3 mm and typed parallel mildly irregular hypoechoic shadowing mass of right breast at 5:00 3 cm from nipple 2. Ultrasound-guided biopsy of right breast 5:00 lesion 3 cm from nipple is rec ommended BI-RADS category 4, suspicious findings. Dr. Valera telephoned the report and right breast 5:00 ultrasound-guided biopsy r ecommendation on 05/28/2023 at 1040 hours to office nurse voicemail at [phone].
== END ==
PROVIDERS: PCP Family Medicine; Visit Provider Family Medicine
DX: R92.8 Other abnormal and inconclusive findings on diagnostic imaging of breast (principal)
CPT/HCPCS: 76641; 77061; 77065; G0279

== ENCOUNTER 2023-06-04 09:57 | Outpatient (CLI) | payer MEDICARE, SELFPAY ==
--- NOTE | ~2023-06-04 | US_ITS ---
EXAMINATION: US_BCARIMG_US DATE: 06/04/2023 16:11 CDT INDICATION: Right breast mass seen on prior examination. Biopsy requested. TECHNIQUE: Survey imaging of the right breast was performed. The cyst(s) at the 5:00 position, 3 cm from the nipple was targeted for aspiration. The procedure and its risk and benefits were discussed with the patient. Risks included but were not limited to pain, bleeding and infection. The patient v erbalized understanding and provided written consent. A time-out was performed to document the patient's name, date of , and site of procedure. The l ower inner quadrant of the patient's right breast was prepped and draped in usual sterile fashion. 1 % lidocaine was used for local anesthesia. Utilizing ultrasound guidance, a 18-gauge needle was adva nced into the lesion in the 5:00 position. Aspiration was performed. The patient tolerated procedure without immediate complication. Sterile bandages were applied over t he aspiration site(s).] FINDINGS: There is complete resolution of the 4 mm cystic lesion without complication. Clear fluid ob tained. IMPRESSION: 1. Complete resolution of 4 mm cyst at 5:00, 3 cm from the nipple which contains benign clear fluid. Routine yearly screening mammogram and regular clinical breast examination are recommended. BI-RADS CATEGORY 2 - BENIGN FINDINGS Reviewed, dictated and finalized at location A. IMPRESSION: 1. Complete resolution of 4 mm cyst at 5:00, 3 cm from the nipple which contai ns benign clear fluid. Routine yearly screening mammogram and regular clinical breast examination are recommended. BI-RADS CATEGORY 2 - BENIGN FINDINGS
== END 2023-06-04 09:58 | disposition home or self-care (01) ==
PROVIDERS: PCP Family Medicine; Visit Provider Family Medicine
DX: R92.8 Other abnormal and inconclusive findings on diagnostic imaging of breast (principal)
CPT/HCPCS: 19000; 76942

== ENCOUNTER → 2023-09-07 11:18 | Outpatient (CLI) | payer MEDICARE, SELFPAY ==
--- NOTE | ~2023-09-07 | XR_ITS ---
XR chest 2V DATE: 09/07/2023 11:45 INDICATION: Cough TECHNIQUE: 2 views COMPARISON: 01/03/2021 2 view chest FINDINGS: Normal heart size. No hilar or mediastinal enlargement. No pulmonary infiltrate or consolid ation, pleural effusion or pulmonary vascular congestion or pneumothorax. Included skeletal structure s are unremarkable. IMPRESSION: No active cardiopulmonary disease or significant change since 01/03/2021 Reviewed, dictated and finalized at location A. FORCE MANAGEMENT COORDINATOR IMPRESSION: No active cardiopulmonary disease or significant change since 2020
== END ==
PROVIDERS: PCP Family Medicine; Visit Provider Physician Assistant
DX: R05.9 Cough, unspecified (principal)
CPT/HCPCS: 71046

== ENCOUNTER 2024-05-11 11:34 | Outpatient (CLI) | payer MEDICARE, SELFPAY ==
--- NOTE | ~2024-05-11 | MM_ITS ---
EXAMINATION: MM screening dominique BI w marilou HISTORY: Screening TECHNIQUE: Craniocaudal and mediolateral oblique 3-D tomosynthesis images were obtained and synthetic 2-D images were generated. CAD analysis was submitted and interpreted. COMPARISON: Comparison to multiple prior studies sequentially, with oldest reviewed study dated 05/20. BREAST PARENCHYMAL COMPOSITION: Dense: The breasts are extremely dense, which lowers the sensitivity of mammography. FINDINGS: There is no evidence of suspicious mass, calcification, or architectural distortion to sugg est malignancy in either breast. There has been no suspicious interval change. IMPRESSION: 1. No mammographic evidence of malignancy. 2. Recommend routine screening mammography in one year. BI-RADS Category 1: Negative Reviewed, dictated and finalized at location B.
== END 2024-05-11 11:35 | disposition home or self-care (01) ==
LOC: MICIMG 11:34
PROVIDERS: PCP Family Medicine; Visit Provider Family Medicine
DX: Z12.31 Encounter for screening mammogram for malignant neoplasm of breast (principal)
CPT/HCPCS: 77063; 77067

== ENCOUNTER 2024-10-07 15:35 | Outpatient (CLI) | payer MEDICARE, SELFPAY ==
--- NOTE | ~2024-10-07 | XR_ITS ---
EXAMINATION: XR chest 2V 10/07/2024 15:48 INDICATION: Cough PROCEDURE: 2 view chest COMPARISON: Comparison to multiple prior studies sequentially, with oldest reviewed study dated 07/19. FINDINGS: The lungs are clear. The lungs are hyperinflated which is consistent with, but not diagnost ic of chronic obstructive pulmonary disease. The cardiomediastinal silhouette is within normal limit s. There are no pleural effusions. There is no pneumothorax suspected. IMPRESSION: 1: NO ACUTE CARDIOPULMONARY DISEASE. Reviewed, dictated and finalized at location B. FABRICATION SPECIALIST
== END 2024-10-07 15:36 | disposition home or self-care (01) ==
LOC: MICIMG 15:37
PROVIDERS: PCP Family Medicine; Visit Provider Student in an Organized Health Care Education/Training Program
DX: R05.9 Cough, unspecified (principal)
CPT/HCPCS: 71046

== ENCOUNTER 2025-03-15 14:52 | Outpatient (CLI) | payer MEDICARE, SELFPAY ==
--- NOTE | 2025-03-15 15:17 | ECG_ITS ---
Test Date: 2025-03-15 15:23:07 Measurements Intervals [place] Rate: 70 P: 62 DE: 168 QRS: -16 QRSD: 99 T: 11 QT: 365 QTc: 395 Interpretive Statements SINUS RHYTHM LOW QRS VOLTAGE IN PRECORDIAL LEADS INCOMPLETE RIGHT BUNDLE BRANCH BLOCK Electronically Signed On 03-16-2025 17:09:36 CDT by Kj Peters D.O
== END 2025-03-15 14:53 | disposition home or self-care (01) ==
LOC: ANHIMG 14:53 → ANHCARD 15:10
PROVIDERS: PCP Family Medicine; Visit Provider Family Medicine
DX: R94.31 Abnormal electrocardiogram [ECG] [EKG] (principal); R42 Dizziness and giddiness
CPT/HCPCS: 93005

== ENCOUNTER 2025-03-17 08:11 | Outpatient (CLI) | payer MEDICARE, SELFPAY ==
--- OUTSIDE RECORDS SUMMARY | 2025-03-17 08:23 | XMS_ITS ---
Author Organization [facility] Address [address] [address] Care Team Providers Care Record Maker Name Role Phone Madeline Bravo Primary Care Provider Fred Woo [phone] REASON FOR VISIT [place]ell Encounters Encounter Location Date Provider Diagnosis [facility] [address] [address] 03/15/2025 Fred Cameron PLAN OF TREATMENT Next Appt Details Provider Name:Fred Schmidt ot, 04/14/2025 10:10:00 AM, [address], [place] [address], [place], [address],
--- OUTSIDE RECORDS SUMMARY | 2025-03-17 08:23 | XMS_ITS ---
Author Organization [facility] Address [address] [address] Care Team Providers Care Medical Health Researcher Name Role Phone Madeline Bravo Primary Care Provider Fred Woo [phone] REASON FOR VISIT [employer] Encounters Encounter Location Date Provider Diagnosis [facility] [address] [address] 03/11/2025 Fred Cameron PLAN OF TREATMENT Next Appt Details Provider Name:Fred Schmidt ot, 04/14/2025 10:10:00 AM, [address], [place] [address], [place], [address],
--- OUTSIDE RECORDS SUMMARY | 2025-03-17 08:23 | XMS_ITS ---
Author Organization [facility] Address [address] [place] [address] Care Team Providers Care Maitre D Name Role Phone LawrenceMadeline Primary Care Provider Fred Woo Unavailable [phone] ALLERGIES No Known Allergies RESULTS Component Value Reference Range Notes X ray : Cervical Spine 3 vie ws, AP, Lat, Swimmers Reviewed date:03/11/2025 12:42:09 PM Interpretation: Performing Lab: Notes/Report: REASON FOR REFERRAL Reason DIAGNOSES: ACDF C3-7 3 times per week for 3 weeks eval and treat, exercise, modalities per therapist's discretion; HEP Referral Organization [facility] Referring Provider First Name Fred Referring Provider Last Name Nisha Referring Provider Speciality Orthopedic Surgery Referred Provider Specialty Physical The russelly Referral Priority Routine REASON FOR VISIT post-op MEDICATIONS Medication SIG (Take, Route, Frequency, Duration) Notes Start Date End Date Status Ocuvite Not-Taking Mucinex DM Not-Takin g Claritin Not-Taking Escitalopram Oxalate Not-Taking Cholesterol Not-Taki ng PreserVision AREDS 2 Active Meloxicam Active Rosuvastatin Calcium Active HYDROcodone-Acetaminophen 7.5-325 MG 1 tablet as needed Orally every 4-6 hrs for 7 days 03/01/2025 Not-Taking methylPREDNISolone 4 MG as directed Oral ly for 6 days 01/08/2025 Not-Taking Viactiv Active Tirzepatide Active Neuriva Active Vitamin B 12 Active ZyrTEC Active VITAL SIGNS BMI 21.41 kg/m2 03/11/2025 Height 69 in 03/11/2025 Weight 145 lbs 03/11/2025 Encounters Encounter Location Date Provider Diagnosis [facility] [address] [facility] [address] [place] [address] 03/11/2025 Fred Cameron PLAN OF TREATMENT Referrals Referral Date Details DIAGNOSES: ACDF C3-7 3 times per week for 3 weeks eval and treat, exercise, modalities per therapist's discretion; HEP Next Appt Details Provider Name:Fred Schmidt ot, 04/14/2025 10:10:00 AM, [address], [address], [place], [address], Consultation Request Notes Referral Date Referring Provider Referred Provider Not es 03/11/2025 Fred Cameron , DIAGNOSES: A CDF C3-7 3 times per week for 3 weeks eval and treat, exercise, modalities per therapist's discretion; HEP
--- OUTSIDE RECORDS SUMMARY | 2025-03-17 08:23 | XMS_ITS | Patient Health Record ---
Author Organization [facility] Address [address] [address] Care Team Providers Care Principal Architect Name Role Phone Madeline Bravo MD Primary Care Provider Noeím Gilliland Unavailable [phone] Reason For Referral No Information Social History Sex Assigned At : Social History Observation Description Sex Assigned At Female Problems Problem Type SNOMED Code ICD Code Onset Dates Problem Status W/U Status Risk Notes Problem Generalized anxiety disorder (39381861) Generalized anxiety disorder (F41.1) Active confirmed Problem Sexual dysfunction (10118136) Sexual dysfunction, unspecified (R37) Active confirmed Problem Adjustment disorder with depressed mood (03620350) Grief reaction (F43.21) Active confirmed Problem Mild major depression, single episode (62212775) Current mild episode of major depressive disorder without prior episode (F32.0) Active confirmed Encounters Encounter Location Date Provider Diagnosis [facility] [employer] [facility] [address] [address] 05/06/2024 Noemí Maldonado Current mild episode of major depressive disorder without prior episode F32.0 ; Grief reaction F43.21 and Sexual dysfunction, unspecified R37 [facility] [address] [facility] [address] [place] [address] 05/20/2024 Noemí Maldonado Current mild episode of major depressive disorder without prior episode F32.0 ; Sexual dysfunction, unspecified R37 ; Grief reaction F43.21 and Generalized anxiety disorder F41.1 [facility] [facility] [place] [address] [facility] [address] [place] [address] 06/03/2024 Noemí Maldonado [employer] [facility] [address] [facility] [address] [place] [address] 06/05/2024 Noemí Maldonado Current mild episode of major depressive disorder without prior episode F32.0 ; Generalized anxiety disorder F41.1 ; Sexual dysfunction, unspecified R37 and Grief reaction F43.21 [facility] [employer] [facility] [address] [place] [address] [place] [address] 10/16/2024 Noemí Maldonado Assessments Encounter Date Diagnosis (ICD Code) Assessment Notes Treatment Notes Treatment Clinical Notes Section Notes 05/06/2024 Grief reaction (ICD-10 - F43.21) Assessment and Plan: 1. Major Depressive Disorder - Continue taking citalopram as prescribed for depression. - Encourage engagement in previously enjoyed activities, such as going to the gym and attending social events. - Schedule regular follow-up appointments to monitor progress and adjust treatment as necessary. - Consider referral to a psychiatrist if symptoms do not improve or worsen. 2. Grief and Bereavement - Encourage discussion of feelings and emotions related to the multiple losses experienced. - Provide psychoeducation on the stages of grief and coping strategies. - Consider referral to a grief support group. 3. Sexual Dysfunction - Continue using the prescribed cream for thin skin and taking the daily pill as directed. - Encourage open communication with her regarding feelings and concerns about intimacy. - Consider referral to a sex therapist or couples counseling to address intimacy issues and improve communication. 4. Low Testosterone - Follow recommendations from [facility] regarding hormone replacement therapy. - Monitor changes in mood, energy levels, and sexual function. - Schedule follow-up appointments to assess treatment effectiveness and make necessary adjustments. 5. Weight Gain - Encourage resumption of previous exercise routines, such as regular gym visits. - Provide education on healthy eating habits and portion control. - Monitor weight changes during follow-up appointments and adjust recommendations as needed. 6. Relationship Issues - Encourage open communication with her regarding feelings and concerns about their relationship. - Consider referral to couples counseling to address communication and intimacy issues. 7. Social Isolation - Encourage engagement in social activities with friends and family. - Suggest participation in community events or joining clubs to increase social interaction. Follow-up: - Schedule a follow-up appointment in 2 weeks to assess progress and adjust the treatment plan as necessary. - Encourage the patient to contact the clinic if experiencing any worsening of symptoms or new concerns. 05/06/2024 Current mild episode of major depressive disorder without prior episode (ICD-10 - F32.0) Assessment and Plan: 1. Major Depressive Disorder - Continue taking citalopram as prescribed for depression. - Encourage engagement in previously enjoyed activities, such as going to the gym and attending social events. - Schedule regular follow-up appointments to monitor progress and adjust treatment as necessary. - Consider referral to a psychiatrist if symptoms do not improve or worsen. 2. Grief and Bereavement - Encourage discussion of feelings and emotions related to the multiple losses experienced. - Provide psychoeducation on the stages of grief and coping strategies. - Consider referral to a grief support group. 3. Sexual Dysfunction - Continue using the prescribed cream for thin skin and taking the daily pill as directed. - Encourage open communication with her regarding feelings and concerns about intimacy. - Consider referral to a sex therapist or couples counseling to address intimacy issues and improve communication. 4. Low Testosterone - Follow recommendations from [facility] regarding hormone replacement therapy. - Monitor changes in mood, energy levels, and sexual function. - Schedule follow-up appointments to assess treatment effectiveness and make necessary adjustments. 5. Weight Gain - Encourage resumption of previous exercise routines, such as regular gym visits. - Provide education on healthy eating habits and portion control. - Monitor weight changes during follow-up appointments and adjust recommendations as needed. 6. Relationship Issues - Encourage open communication with her regarding feelings and concerns about their relationship. - Consider referral to couples counseling to address communication and intimacy issues. 7. Social Isolation - Encourage engagement in social activities with friends and family. - Suggest participation in community events or joining clubs to increase social interaction. Follow-up: - Schedule a follow-up appointment in 2 weeks to assess progress and adjust the treatment plan as necessary. - Encourage the patient to contact the clinic if experiencing any worsening of symptoms or new concerns. 05/20/2024 Sexual dysfunction, unspecified (ICD-10 - R37) 1. Depression - Continue the use of current medication and creams as they have shown some improvement in mood. - Practice gratitude and focus on the positives in life to enhance mood and overall well-being. - Schedule a follow-up in 2 weeks to address issues related to perfectionism, the impact of others' opinions, and strategies for not taking things personally to further reduce anxiety. 2. Anxiety - Monitor anxiety levels closely during subsequent appointments to assess any changes or improvements. - Next session to concentrate on managing perfectionism and the tendency to take others' opinions personally as a means to alleviate anxiety symptoms. 3. Body Dysmorphia - Provide education on body dysmorphia, emphasizing the importance of challenging negative body image thoughts. - Encourage efforts towards boosting self-esteem and fostering self-acceptance to combat body dysmorphic perceptions. 4. Knee Pain and Physical Activity - Explore alternative low-impact exercises, such as swimming or cycling, to stay active while accommodating knee pain. - Advise consultation with a primary care physician or an ingredient specialist for a comprehensive evaluation and management plan for knee pain. 5. Social Support - Continue reaching out to friends and participating in social events to improve mood and enhance social well-being. - Emphasize the significance of maintaining a healthy balance between work and life, especially in snf, to support mental health. 05/20/2024 Current mild episode of major depressive disorder without prior episode (ICD-10 - F32.0) 1. Depression - Continue the use of current medication and creams as they have shown some improvement in mood. - Practice gratitude and focus on the positives in life to enhance mood and overall well-being. - Schedule a follow-up in 2 weeks to address issues related to perfectionism, the impact of others' opinions, and strategies for not taking things personally to further reduce anxiety. 2. Anxiety - Monitor anxiety levels closely during subsequent appointments to assess any changes or improvements. - Next session to concentrate on managing perfectionism and the tendency to take others' opinions personally as a means to alleviate anxiety symptoms. 3. Body Dysmorphia - Provide education on body dysmorphia, emphasizing the importance of challenging negative body image thoughts. - Encourage efforts towards boosting self-esteem and fostering self-acceptance to combat body dysmorphic perceptions. 4. Knee Pain and Physical Activity - Explore alternative low-impact exercises, such as swimming or cycling, to stay active while accommodating knee pain. - Advise consultation with a primary care physician or an ingredient specialist for a comprehensive evaluation and management plan for knee pain. 5. Social Support - Continue reaching out to friends and participating in social events to improve mood and enhance social well-being. - Emphasize the significance of maintaining a healthy balance between work and life, especially in snf, to support mental health. 06/05/2024 Generalized anxiety disorder (ICD-10 - F41.1) Assessment and Plan: 1. Adjustment Disorder with Mixed Anxiety and Depressed Mood - Continue Cognitive Behavioral Therapy to address maladaptive thoughts and behaviors. - Encourage the patient to engage in activities with her to improve their relationship and her mood. - Monitor the patient's mood and anxiety levels during therapy sessions. 2. Grief and Bereavement - Provide information on local grief support groups, such as [facility] at [facility]. - Encourage the patient to attend support group meetings to connect with others experiencing similar losses. - Continue to address grief and loss during therapy sessions, focusing on coping strategies and emotional processing. 3. Low Self-Esteem and Fear of Judgment - Explore the patient's childhood experiences and family dynamics to identify potential sources of low self-esteem. - Utilize Cognitive Behavioral Therapy techniques to challenge negative self-perceptions and beliefs. - Encourage the patient to practice self-compassion and self-care activities. 4. Body Image Concerns and History of Disordered Eating - Assess the patient's current eating habits and relationship with food. - Address any maladaptive thoughts or behaviors related to body image and weight during therapy sessions. - Encourage the patient to engage in healthy eating habits and regular physical activity, such as attending the gym. 5. Social Isolation - Encourage the patient to maintain connections with family and friends, including attending events and outings. - Discuss the importance of social support in mental health and well-being. - Explore potential barriers to social engagement and develop strategies to overcome them. 6. Financial Concerns - Reassure the patient of her ability to manage finances effectively, as evidenced by her past experiences. - Encourage open communication with her about financial matters to alleviate stress and anxiety. - Continue to monitor the patient's financial concerns during therapy sessions and address any maladaptive thoughts or behaviors related to finances. Follow-up: - Schedule a follow-up appointment to monitor the patient's progress and continue working on the identified issues. 06/05/2024 Current mild episode of major depressive disorder without prior episode (ICD-10 - F32.0) Assessment and Plan: 1. Adjustment Disorder with Mixed Anxiety and Depressed Mood - Continue Cognitive Behavioral Therapy to address maladaptive thoughts and behaviors. - Encourage the patient to engage in activities with her to improve their relationship and her mood. - Monitor the patient's mood and anxiety levels during therapy sessions. 2. Grief and Bereavement - Provide information on local grief support groups, such as [facility]rief [facility] at [facility]. - Encourage the patient to attend support group meetings to connect with others experiencing similar losses. - Continue to address grief and loss during therapy sessions, focusing on coping strategies and emotional processing. 3. Low Self-Esteem and Fear of Judgment - Explore the patient's childhood experiences and family dynamics to identify potential sources of low self-esteem. - Utilize Cognitive Behavioral Therapy techniques to challenge negative self-perceptions and beliefs. - Encourage the patient to practice self-compassion and self-care activities. 4. Body Image Concerns and History of Disordered Eating - Assess the patient's current eating habits and relationship with food. - Address any maladaptive thoughts or behaviors related to body image and weight during therapy sessions. - Encourage the patient to engage in healthy eating habits and regular physical activity, such as attending the gym. 5. Social Isolation - Encourage the patient to maintain connections with family and friends, including attending events and outings. - Discuss the importance of social support in mental health and well-being. - Explore potential barriers to social engagement and develop strategies to overcome them. 6. Financial Concerns - Reassure the patient of her ability to manage finances effectively, as evidenced by her past experiences. - Encourage open communication with her about financial matters to alleviate stress and anxiety. - Continue to monitor the patient's financial concerns during therapy sessions and address any maladaptive thoughts or behaviors related to finances. Follow-up: - Schedule a follow-up appointment to monitor the patient's progress and continue working on the identified issues. 05/06/2024 Sexual dysfunction, unspecified (ICD-10 - R37) Assessment and Plan: 1. Major Depressive Disorder - Continue taking citalopram as prescribed for depression. - Encourage engagement in previously enjoyed activities, such as going to the gym and attending social events. - Schedule regular follow-up appointments to monitor progress and adjust treatment as necessary. - Consider referral to a psychiatrist if symptoms do not improve or worsen. 2. Grief and Bereavement - Encourage discussion of feelings and emotions related to the multiple losses experienced. - Provide psychoeducation on the stages of grief and coping strategies. - Consider referral to a grief support group. 3. Sexual Dysfunction - Continue using the prescribed cream for thin skin and taking the daily pill as directed. - Encourage open communication with her regarding feelings and concerns about intimacy. - Consider referral to a sex therapist or couples counseling to address intimacy issues and improve communication. 4. Low Testosterone - Follow recommendations from [facility] regarding hormone replacement therapy. - Monitor changes in mood, energy levels, and sexual function. - Schedule follow-up appointments to assess treatment effectiveness and make necessary adjustments. 5. Weight Gain - Encourage resumption of previous exercise routines, such as regular gym visits. - Provide education on healthy eating habits and portion control. - Monitor weight changes during follow-up appointments and adjust recommendations as needed. 6. Relationship Issues - Encourage open communication with her regarding feelings and concerns about their relationship. - Consider referral to couples counseling to address communication and intimacy issues. 7. Social Isolation - Encourage engagement in social activities with friends and family. - Suggest participation in community events or joining clubs to increase social interaction. Follow-up: - Schedule a follow-up appointment in 2 weeks to assess progress and adjust the treatment plan as necessary. - Encourage the patient to contact the clinic if experiencing any worsening of symptoms or new concerns. 06/05/2024 Sexual dysfunction, unspecified (ICD-10 - R37) Assessment and Plan: 1. Adjustment Disorder with Mixed Anxiety and Depressed Mood - Continue Cognitive Behavioral Therapy to address maladaptive thoughts and behaviors. - Encourage the patient to engage in activities with her to improve their relationship and her mood. - Monitor the patient's mood and anxiety levels during therapy sessions. 2. Grief and Bereavement - Provide information on local grief support groups, such as [facility]rief [facility] at [facility]. - Encourage the patient to attend support group meetings to connect with others experiencing similar losses. - Continue to address grief and loss during therapy sessions, focusing on coping strategies and emotional processing. 3. Low Self-Esteem and Fear of Judgment - Explore the patient's childhood experiences and family dynamics to identify potential sources of low self-esteem. - Utilize Cognitive Behavioral Therapy techniques to challenge negative self-perceptions and beliefs. - Encourage the patient to practice self-compassion and self-care activities. 4. Body Image Concerns and History of Disordered Eating - Assess the patient's current eating habits and relationship with food. - Address any maladaptive thoughts or behaviors related to body image and weight during therapy sessions. - Encourage the patient to engage in healthy eating habits and regular physical activity, such as attending the gym. 5. Social Isolation - Encourage the patient to maintain connections with family and friends, including attending events and outings. - Discuss the importance of social support in mental health and well-being. - Explore potential barriers to social engagement and develop strategies to overcome them. 6. Financial Concerns - Reassure the patient of her ability to manage finances effectively, as evidenced by her past experiences. - Encourage open communication with her about financial matters to alleviate stress and anxiety. - Continue to monitor the patient's financial concerns during therapy sessions and address any maladaptive thoughts or behaviors related to finances. Follow-up: - Schedule a follow-up appointment to monitor the patient's progress and continue working on the identified issues. 05/20/2024 Grief reaction (ICD-10 - F43.21) 1. Depression - Continue the use of current medication and creams as they have shown some improvement in mood. - Practice gratitude and focus on the positives in life to enhance mood and overall well-being. - Schedule a follow-up in 2 weeks to address issues related to perfectionism, the impact of others' opinions, and strategies for not taking things personally to further reduce anxiety. 2. Anxiety - Monitor anxiety levels closely during subsequent appointments to assess any changes or improvements. - Next session to concentrate on managing perfectionism and the tendency to take others' opinions personally as a means to alleviate anxiety symptoms. 3. Body Dysmorphia - Provide education on body dysmorphia, emphasizing the importance of challenging negative body image thoughts. - Encourage efforts towards boosting self-esteem and fostering self-acceptance to combat body dysmorphic perceptions. 4. Knee Pain and Physical Activity - Explore alternative low-impact exercises, such as swimming or cycling, to stay active while accommodating knee pain. - Advise consultation with a primary care physician or an ingredient specialist for a comprehensive evaluation and management plan for knee pain. 5. Social Support - Continue reaching out to friends and participating in social events to improve mood and enhance social well-being. - Emphasize the significance of maintaining a healthy balance between work and life, especially in snf, to support mental health. 05/20/2024 Generalized anxiety disorder (ICD-10 - F41.1) 1. Depression - Continue the use of current medication and creams as they have shown some improvement in mood. - Practice gratitude and focus on the positives in life to enhance mood and overall well-being. - Schedule a follow-up in 2 weeks to address issues related to perfectionism, the impact of others' opinions, and strategies for not taking things personally to further reduce anxiety. 2. Anxiety - Monitor anxiety levels closely during subsequent appointments to assess any changes or improvements. - Next session to concentrate on managing perfectionism and the tendency to take others' opinions personally as a means to alleviate anxiety symptoms. 3. Body Dysmorphia - Provide education on body dysmorphia, emphasizing the importance of challenging negative body image thoughts. - Encourage efforts towards boosting self-esteem and fostering self-acceptance to combat body dysmorphic perceptions. 4. Knee Pain and Physical Activity - Explore alternative low-impact exercises, such as swimming or cycling, to stay active while accommodating knee pain. - Advise consultation with a primary care physician or an ingredient specialist for a comprehensive evaluation and management plan for knee pain. 5. Social Support - Continue reaching out to friends and participating in social events to improve mood and enhance social well-being. - Emphasize the significance of maintaining a healthy balance between work and life, especially in snf, to support mental health. 06/05/2024 Grief reaction (ICD-10 - F43.21) Assessment and Plan: 1. Adjustment Disorder with Mixed Anxiety and Depressed Mood - Continue Cognitive Behavioral Therapy to address maladaptive thoughts and behaviors. - Encourage the patient to engage in activities with her to improve their relationship and her mood. - Monitor the patient's mood and anxiety levels during therapy sessions. 2. Grief and Bereavement - Provide information on local grief support groups, such as [facility]rief [facility] at [facility]. - Encourage the patient to attend support group meetings to connect with others experiencing similar losses. - Continue to address grief and loss during therapy sessions, focusing on coping strategies and emotional processing. 3. Low Self-Esteem and Fear of Judgment - Explore the patient's childhood experiences and family dynamics to identify potential sources of low self-esteem. - Utilize Cognitive Behavioral Therapy techniques to challenge negative self-perceptions and beliefs. - Encourage the patient to practice self-compassion and self-care activities. 4. Body Image Concerns and History of Disordered Eating - Assess the patient's current eating habits and relationship with food. - Address any maladaptive thoughts or behaviors related to body image and weight during therapy sessions. - Encourage the patient to engage in healthy eating habits and regular physical activity, such as attending the gym. 5. Social Isolation - Encourage the patient to maintain connections with family and friends, including attending events and outings. - Discuss the importance of social support in mental health and well-being. - Explore potential barriers to social engagement and develop strategies to overcome them. 6. Financial Concerns - Reassure the patient of her ability to manage finances effectively, as evidenced by her past experiences. - Encourage open communication with her about financial matters to alleviate stress and anxiety. - Continue to monitor the patient's financial concerns during therapy sessions and address any maladaptive thoughts or behaviors related to finances. Follow-up: - Schedule a follow-up appointment to monitor the patient's progress and continue working on the identified issues. Plan Of Treatment No Information Insurance Providers Payer Name Payer Address Payer Phone Subscriber Number Group Number Insured Name Patient Relationship to Insured Coverage Start Date Coverage End Date [facility] [address] [place] [address] [id number] PEPE BOLANOS Self - patient is the insured Medical (General) History Medical History History ICD Code Past Psychiatric History: Anxiety Disord er abdominal aortic aneurysm: No atrial fibrillation: No chronic fatigue syndrome: No essential tremor: No hyperlipidemia: No hypertension: No Parkinson's disease: No restless leg syndrome: No stroke: No subdural hematoma: No type 1 diabetes mellitus: No type 2 diabetes mellitus: No vitamin B12 deficiency: No vitamin D deficiency: No
--- OUTSIDE RECORDS SUMMARY | 2025-03-17 08:24 | XMS_ITS | Patient Health Record ---
Author Organization [facility] Address [address] [place] [address] Care Team Providers Care Senior Treasury Consultant Name Role Phone LawrenceMadeline Primary Care Provider Fred Woo Unavailable [phone] Aiden Gillette Unavailable [phone] ALLERGIES No Known Allergies RESULTS Component Value Reference Range Notes MRI : Cervical without Contr ast Reviewed date:01/12/2025 10:18:55 AM Interpretation:medicare advantage Performing Lab: Notes/Report: medicare advantage X ray : Cervical Spine 7 vie ws, AP, Lateral, Swimmers, Obliques, Flexion and Extension Reviewed date:12/31/2024 12:29:47 PM Interpretation: Performing Lab: Notes/Report: X ray : Cervical Spine 3 vie [...] Specialty Physical The russelly Referral Priority Routine MEDICATIONS Medication SIG (Take, Route, Frequency, Duration) Notes Start Date End Date Status Viactiv Active Ocuvite Not-Taking Tirzepatide Active Neuriva Active Mucinex DM Not-Takin g Vitamin B 12 Active Claritin Not-Taking PreserVision AREDS 2 Active ZyrTEC Active Meloxicam Active Rosuvastatin Calcium Active HYDROcodone-Acetaminophen 7.5-325 MG 1 tablet as needed Orally every 4-6 hrs for 7 days 03/01/2025 Not-Taking methylPREDNISolone 4 MG as directed Oral ly for 6 days 01/08/2025 Not-Taking Escitalopram Oxalate Not-Taking Cholesterol Not-Taki ng PROBLEMS Problem Type ICD Code Onset Dates Problem Status W/U Status Risk SNOMED Code Notes Problem Degenerative disc disease, cervical (M50.30) Active confirmed 76333106 Problem Cervical stenosis of spinal canal (M48.02) Active confirmed Spinal stenosis in cervical region (12692427) Problem Cervical radiculitis (M54.12) Active confirmed 44806034 Problem Cervical myelopathy (G95.9) Active confirmed Cervical myelop athy (733325632) Problem Cervical pain (M54.2) Active confirmed Cervical pain (04256956) Problem Cervical stenosis of spine (M48.02) Active confirmed Spinal stenos is in cervical region (31667177) Problem Vitamin D deficiency (E55.9) Active confirmed Vitamin D defic iency (74426163) Problem Neck pain (M54.2) Active confirmed 41200071 Problem Cervical disc herniation (M50.20) Active confirmed Prolapsed cervi dennis intervertebral disc (967608175) Problem Spondylolisthes is, cervical region (M43.12) Active confirmed Acquired spondylolisthesis (072269255) VITAL SIGNS Height 69 in 03/11/2025 Weight 145 lbs 03/11/2025 BMI 21.41 kg/m2 03/11/2025 PROCEDURES Procedure Date Ordered Date Performed Result Body Sit e Cervical Epidural Steroid Injection 01/08/2025 01/15/2025 med complete DME_Bone Stim, Cervical Spine 01/08/2025 03/15/2025 med [facility] Cervical Collar 01/08/2025 03/04/2025 N/A Anterior Cervical Discectomy and Fusion 01/08/2025 03/01/2025 [facility] approved Encounters Encounter Location Date Provider Diagnosis [facility] ONLY [address] [address] 01/08/2025 Fred Cameron [facility] [address] [address] 02/23/2025 Aiden Gillette [facility] [address] [address] 03/11/2025 Fred Cameron [facility] [address] [address] 12/31/2024 Fred Cameron Cervical radiculitis M54.12 ; Degenerative disc disease, cervical M50.30 ; Cervical myelopathy G95.9 and Foraminal stenosis of cervical region M99.81 [facility] [address] [place] [address] 03/01/2025 Fred Cameron [facility] [address] [address] 01/12/2025 Fred Cameron [facility] [address] [address] 01/19/2025 Fred Cameron [facility] [address] [address] 02/22/2025 Fred Cameron [facility] [address] [address] 02/25/2025 Fred Cameron [facility] [address] [address] 02/26/2025 Fred Cameron [facility] [address] [address] 03/11/2025 Fred Cameron [facility] [address] [address] 03/15/2025 Fred Cameron [facility] [address] [address] 01/08/2025 Fred Cameron Preop testing Z01.81 8 ; Cervical stenosis of spine M48.02 ; Degenerative disc disease, cervical M50.30 ; Cervical radiculitis M54.12 and Neck pain M54.2 ASSESSMENTS Encounter Date Diagnosis Assessment Notes Treatment Notes Treatment Clinical Notes 12/31/2024 Cervical radiculitis (ICD-10 - M54.12) 12/31/2024 Degenerative disc disease, cervical (ICD-10 - M50.30) 01/08/2025 Preop testing (ICD-10 - Z01.818) 01/08/2025 Cervical stenosis of spine (ICD-10 - M48.02) 12/31/2024 Cervical myelopathy (ICD-10 - G95.9) 01/08/2025 Degenerative disc disease, cervical (ICD-10 - M50.30) 12/31/2024 Foraminal stenosis of cervical region (ICD-10 - M99.81) 01/08/2025 Cervical radiculitis (ICD-10 - M54.12) 01/08/2025 Neck pain (ICD-10 - M54.2) PLAN OF TREATMENT Pending Test Test Name Order Date Electrocardiogram (EKG) 01/08/2025 CBC With Differential/Platelet PT AND PTT 01/08/2025 Vitamin D, 25-Hydroxy 01/08/2025 Chem-Comprehensive 01/08/2025 X ray : Chest 2 views, PA, Lateral 01/08 INR 01/08/2025 Next Appt Details Provider Name:Fred Schmidt ot, 04/14/2025 10:10:00 AM, [address], [place], [address], Insurance Providers Payer Name Payer Address Payer Phone Subscriber Number Group Number Insured Name Patient Relationship to Insured Coverage Start Date Coverage End Date [facility] Medicare Complete (Needs Referral!) [address] [address] [place] [address] [id number] Tracy Hamm Self - patient is the insured [facility] [address] [address] [place] [address] [id number] Tracy Hamm Self - patient is the insured MEDICAL (GENERAL) HISTORY Medical History History ICD Code Arthritis in major joints Neck pain Shoulder pain Disc degeneration Radiculopathy Constipation Denies h/o emotional/psychiatric disorde r Denies h/o drug/chemical dependency Surgical History Surgery Date(Month/Year) ACDF C3-7 02/2025 Uterine cyst Partial hysterectomy 1993 11/1975, 12/1977 Hernia 195
--- OUTSIDE RECORDS SUMMARY | 2025-03-17 08:24 | XMS_ITS | Clinical Summary ---
Author Organization [facility] Address [address] [place] [address] Phone Care Team Providers Care Pressure Supervisor Name Role Phone Fred Rodriguez MD Primary Care Provider + [phone] Allergies No known active allergies Medications loratadine 10 mg Oral Cap Take by mouth. Active rosuvastatin (CRESTOR) 5 mg Oral tablet Take 5 mg by mouth daily at bedtime. Active RANITIDINE HCL ORAL Take by mouth. Active fluticasone (FLONASE) 50 mcg/spray [place], Suspension 01/19/2015 Active escitalopram oxalate (LEXAPRO) 10 mg tablet 02/04/2015 Active naproxen (NAPROSYN) 500 mg tablet 03/07/2015 Active temazepam (RESTORIL) 7.5 mg capsule 02/08/2015 Active Active Problems Patient Care Coordination No te Formatting of this note migh t be different from the original. Primary Care: Fred Rodriguez MD (General) Referring Provider: Stephany Arevalo MD [address] [place] [address] Other: Dr Melisa Painting Problem Noted Date Diagnosed Date Lesion of breast 03/02/2015 Arthritis Family History Medical History Relation Name Comments Heart Disease Father Cancer Mother bone marrow Breast Cancer Other niece, 40s Ovarian Cancer Neg Hx Uterine Cancer Neg Hx Relation Name Status Comments Father Mother Other Alive Social History Tobacco Use Types Packs/Day Years Used Date Smoking Tobacco: Never Smokeless Tobacco: Never Tobacco Cessation:Counseling Given: No Alcohol Use Standard Drinks/Week Comments Yes 0 (1 standard drink = 0.6 oz pur e alcohol) rare Comments No Sex and Gender Information Value Date Recorded Sex Assigned at Not on file Legal Sex Female 10:30 AM CDT Gender Identity Not on file Sexual Orientation Not on file Occupation Industry Job Start Date Job End Date Not on file Not on file Not on file Not on file Last Filed Vital Signs Vital Sign Reading Time Taken Comments Blood Pressure 116/69 03/15/2015 9:51 AM CDT Pulse 65 03/15/2015 9:51 AM CDT Temperature - - Respiratory Rate - - Oxygen Saturation - - Inhaled Oxygen Concentration - - Weight 65.3 kg (144 lb) 03/15/2015 9:51 AM CDT Height 175.3 cm (5' 9) 03/15/2015 9:51 AM CDT Body Mass Index 21.27 03/15/2015 9:51 AM CDT Plan of Treatment Health Maintenance Due Date Last Done Comments DTAP/TDAP/TD VACCINES (1 - Tdap) 1971 COLORECTAL SCREENING 1997 Colorectal Cancer Screening 1997 FIT-DNA Q 3 years 1997 FIT/FOBT Q 1 year 1997 Flex Sig/CT Colonography Q 5 years 1997 PNEUMOCOCCAL VACCINE 50+ YEA RS (1 of 1 - PCV) 2002 ZOSTER VACCINE (1 of 2) 2002 BREAST CANCER SCREENING 03/15/2016 03/15/20 15, 08/30/2014, 01/19/2013, Additional history exists OSTEOPOROSIS SCREENING 2017 INFLUENZA VACCINE (#1) 2025 RSV VACCINE (60+ or ) (1 - 1-dose 75+ series) 2027 Procedures Procedure Name Priority Date/Time Associated Diagnosis Comments MAMMO DIAGNOSTIC UNI RIGHT W OR WO CAD Routine 03/15/2015 12:27 PM CDT Lesion of breast from Last 3 Months or Most Recently Relevant to Health Maintenance Results * MAMMO DIGITAL DIAG UNI RIGHT (03/15/2015 12:27 PM CDT) Anatomical Region Laterality Modality Breast Right Mammography 03/15/2015 12:2 6 PM CDT Narrative 03/16/2015 7:45 AM CDT ULTRASOUND GUIDED CYST ASPIRATION OF THE RIGHT BREAST ULTRASOUND GUIDED CORE BIOPSY OF THE RIGHT BREAST WITH MICROCLIP PLACEMENT RIGHT UNILATERAL FULL-FIELD DIGITAL MAMMOGRAM 03/15/15 HISTORY: The palpable hypoechoic lesion thought to represent a complicated cyst with internal debris is present within the lateral right breast in the 9:00 position. This measured approximately 1.1 cm in diameter. An additional hypoechoic lesion with posterior shadowing was described on the outside ultrasound performed at [facility] at the 11:00 position of the right breast. Aspiration and possible biopsy is requested for further characterization. PROCEDURE AND FINDINGS: The risks and benefits of the procedure were explained to patient and informed consent was obtained. Scanning is performed over the lateral right breast which again demonstrates an ovoid hypoechoic lesion thought to represent a cyst with internal debris rather than a solid nodule. This corresponds to the patient's palpable lump described by the breast surgeon. The overlying skin surface was prepped and draped in sterile fashion. 1% lidocaine was used for local anesthetic. Under ultrasound guidance an 18-gauge needle was inserted into the lesion which was accessed successfully aspirated under gentle suction. This completely resolved and no residual solid component was present. A Band-Aid was applied over the puncture site. The breast was again prepped and draped in sterile fashion and 1% lidocaine was used for local anesthetic. Using ultrasound guidance a 18-gauge needle was inserted into the small shadowing lesion at the 11:00 position of the right breast. Aspiration was attempted but the lesion did not completely resolve. Additional 1% lidocaine was measured around the lesion for local anesthetic. Small skin rainer was made and under ultrasound guidance a Vacora 10-gauge vacuum-assisted core biopsy device was inserted from a lateral approach. Two core samples are obtained. The microclip was deployed at the biopsy site and manual pressure was held to achieve hemostasis. The skin rainer was closed with skin glue and a Steri-Strip. The patient received written and verbal post procedure instructions. She tolerated procedure well and no significant complications were experienced. Two-view mammogram confirmed successful deployment of microclip at the 11:00 position of the right breast. The patient left the department in good condition. CONCLUSION: Technically successful ultrasound-guided core biopsy the right breast and technically successful cyst aspiration of the right breast as described above. [facility] Procedure Note Ramses Kelley MD - 03/16/2015 ULTRASOUND GUIDED CYST ASPIRATION OF THE RIGHT BREAST ULTRASOUND GUIDED CORE BIOPSY OF THE RIGHT BREAST WITH MICROCLIP PLACEMENT RIGHT UNILATERAL FULL-FIELD DIGITAL MAMMOGRAM 03/15/15 HISTORY: The palpable hypoechoic lesion thought to represent a complicated cyst with internal debris is present within the lateral right breast in the 9:00 position. This measured approximately 1.1 cm in diameter. An additional hypoechoic lesion with posterior shadowing was described on the outside ultrasound performed at [facility] at the 11:00 position of the right breast. Aspiration and possible biopsy is requested for further characterization. PROCEDURE AND FINDINGS: The risks and benefits of the procedure were explained to patient and informed consent was obtained. Scanning is performed over the lateral right breast which again demonstrates an ovoid hypoechoic lesion thought to represent a cyst with internal debris rather than a solid nodule. This corresponds to the patient's palpable lump described by the breast surgeon. The overlying skin surface was prepped and draped in sterile fashion. 1% lidocaine was used for local anesthetic. Under ultrasound guidance an 18-gauge needle was inserted into the lesion which was accessed successfully aspirated under gentle suction. This completely resolved and no residual solid component was present. A Band-Aid was applied over the puncture site. The breast was again prepped and draped in sterile fashion and 1% lidocaine was used for local anesthetic. Using ultrasound guidance a 18-gauge needle was inserted into the small shadowing lesion at the 11:00 position of the right breast. Aspiration was attempted but the lesion did not completely resolve. Additional 1% lidocaine was measured around the lesion for local anesthetic. Small skin rainer was made and under ultrasound guidance a Vacora 10-gauge vacuum-assisted core biopsy device was inserted from a lateral approach. Two core samples are obtained. The microclip was deployed at the biopsy site and manual pressure was held to achieve hemostasis. The skin rainer was closed with skin glue and a Steri-Strip. The patient received written and verbal post procedure instructions. She tolerated procedure well and no significant complications were experienced. Two-view mammogram confirmed successful deployment of microclip at the 11:00 position of the right breast. The patient left the department in good condition. CONCLUSION: Technically successful ultrasound-guided core biopsy the right breast and technically successful cyst aspiration of the right breast as described above. Dictated from [facility] Melisa Painting MD MAMMO ORDERABLES Final Result from Last 3 Months or Most Recently Relevant to Health Maintenance Insurance Care Teams Pressure Supervisor Relationship Specialty Start Date End Date Fred Rodriguez MD PCP - General Internal Medicine 03/15/15
[2025-03-17 08:27] LABS: Hematocrit 39.8 % (37.0-47.0); Hemoglobin 12.6 g/dL (12.0-15.0); Immature Granulocyte Percent A 0.2 % (0-0.5); Lymphocytes Absolute Auto 1.16 K/mm3 (0.9-3.2); Mean Corpuscular HGB Conc 31.7 g/dl (32-36); Mean Corpuscular Hemoglobin 28.8 pg (26-34); Mean Corpuscular Volume 91.1 fl (80-100); Nucleated Red Blood Cells Absolute Auto 0.000 K/mm3 (0.0-0.012); Nucleated Red Blood Cells Perc 0.0 % (0.0-0.2); Platelet Count Result 528 k/mm3 (150-375); Red Blood Count 4.37 M/mm3 (4.2-5.4); White Blood Count 4.6 K/mm3 (4.5-10.0)
[2025-03-17 09:00] LABS: Alanine Aminotransferase 34 U/L (6-35); Albumin Level 3.8 g/dL (3.5-5.1); Alkaline Phosphatase 72 U/L (38-126); Anion Gap 5 mmol/L (4-12); Aspartate Amino Transferase 30 U/L (14-36); Bilirubin,Total 0.4 mg/dL (0.2-1.3); Blood Urea Nitrogen 18 mg/dL (7-17); Calcium 9.3 mg/dL (8.4-10.2); Carbon Dioxide 30 mmol/L (22-30); Chloride 103 mmol/L (98-107); Estimated Glomerular Filt Rate > 60; Glucose 92 mg/dL (65-110); Potassium 4.4 mmol/L (3.4-5.0); Sodium 138 mmol/L (137-145); Total Protein 6.7 g/dL (6.3-8.2)
[2025-03-17 09:23] LABS: Thyroid Stimulating Hormone Reflex 1.520 uIU/mL (0.465-4.68)
[2025-03-17 10:04] LABS: Hemoglobin A1C 5.3 % (<5.7)
== END 2025-03-17 08:12 | disposition home or self-care (01) ==
LOC: ANHLAB 08:13
PROVIDERS: PCP Family Medicine; Visit Provider Family Medicine
DX: R42 Dizziness and giddiness (principal); R73.03 Prediabetes; R53.83 Other fatigue
CPT/HCPCS: 36415; 80053; 82533; 83036; 84443; 85025

== ENCOUNTER 2025-05-13 12:23 | Outpatient (CLI) | payer MEDICARE, SELFPAY ==
--- NOTE | ~2025-05-13 | MM_ITS ---
EXAMINATION: MM screening [facility] BI w marilou HISTORY: Screening TECHNIQUE: Craniocaudal and mediolateral oblique 3-D tomosynthesis images were obtained and synthetic 2-D images were generated. CAD analysis was submitted and interpreted. COMPARISON: Comparison to multiple prior studies sequentially, with oldest reviewed study dated 08/28/2019. BREAST PARENCHYMAL COMPOSITION: The breasts are heterogeneously dense, which may obscure small masses. FINDINGS: There is no evidence of suspicious mass, calcification, or architectural distortion to suggest malignancy in either breast. Scattered benign-appearing calcifications are present. IMPRESSION: 1. No mammographic evidence of malignancy. 2. Recommend routine screening mammography in one year. BI-RADS Category 2: Benign finding(s). Reviewed, dictated and finalized at location B.
== END 2025-05-13 12:24 | disposition home or self-care (01) ==
LOC: MICIMG 12:23
PROVIDERS: PCP Family Medicine; Visit Provider Family Medicine
DX: Z12.31 Encounter for screening mammogram for malignant neoplasm of breast (principal)
CPT/HCPCS: 77063; 77067

== ENCOUNTER 2025-05-18 09:22 | Outpatient (CLI) | payer MEDICARE, SELFPAY ==
--- NOTE | ~2025-05-18 | DEXA_ITS ---
Bone Density Report Name: PEPE MUNGUIA Age: 75 Sex: Female Ethnicity: White Date of : 1950 Indication: osteopenia; prior fracture; hysterectomy; Referring Provider: ZAINA BLACKBURN Study: Bone densitometry was performed. Exam Date: May 18, 2025 Accession number: [id number] Bone Density: Region BMD T-score Z-score Classification AP Spine(L1-L4) 0.911 -1.2 1.0 Osteopenia Femoral Neck (Left) 0.643 -1.9 0.1 Osteopenia Total Hip (Left) 0.673 -2.2 -0.5 Osteopenia Femoral Neck (Right) 0.617 -2.1 -0.1 Osteopenia Total Hip (Right) 0.702 -2.0 -0.3 Osteopenia Total Hip Mean 0.688 -2.1 -0.4 Osteopenia World Health Organization criteria for BMD impression classify patients as: Normal (T-score at or above -1.0), Osteopenia (T-score between -1.0 and -2.5), or Osteoporosis (T-score at or below -2.5). 10-year Fracture Risk(1): Major Osteoporotic Fracture 18% Hip Fracture 4.1% Reported Risk Factors: [place] (), Neck BMD=0.617, BMI=21.1, previous fracture (1) FRAX(R) Version 3.08. Fracture probability calculated for an untreated patient. Fracture probability may be lower if the patient has received treatment. Previous Exams: -- Region Exam Age BMD T-score BMD Change BMD Change Date g/cm2 vs Baseline vs Previous -- AP Spine (L1-L4) 05/18/2025 75 0.911 -1.2 -15.6%* -9.1%* 04/26/2020 69 1.002 -0.4 -7.2%* 3.9%* 05/08/2016 66 0.964 -0.8 -10.7%* -10.7%* 03/10/2010 59 1.080 0.3 Total Hip(Left) 05/18/2025 75 0.673 -2.2 -17.8%* -9.9%* 04/26/2020 69 0.747 -1.6 -8.7%* -0.3% 05/08/2016 66 0.750 -1.6 -8.5%* -8.5%* 03/10/2010 59 0.819 -1.0 Total Hip(Right) 05/18/2025 75 0.702 -2.0 -16.1%* -8.5%* 04/26/2020 69 0.767 -1.4 -8.3%* 3.6% 05/08/2016 66 0.740 -1.7 -11.5%* -11.5%* 03/10/2010 59 0.836 -0.9 -- *Denotes significance at 95% confidence level, LSC for AP Spine = 0.022 g/cm2, LSC for Total Hip = 0.027 g/cm2 Clinical Information Provided by Patient: Has had a low trauma fracture Has used the following medications: Vitamin D Has the following medical conditions: Hysterectomy, cyst removed Patient maximum height was 69 Menopause Age: 50 Drinks caffeinated beverages Onset of menses at age 15 Number of children 2 Impression: The patient has low bone mass, based on the Left Total Hip T-score. The patient has an estimated ten-year risk of hip fracture of 4.1% and an estimated ten-year risk of major fracture of 18%, based on the WHO FRAX algorithm. The patient has risk factors, including: previous fracture. The BMD for the AP Spine (L1-L4) decreased, changing by -9.1% since the last DXA exam. The BMD for the Total Hip(Left) decreased, changing by -9.9% since the last DXA exam. The BMD for the Total Hip(Right) decreased, changing by -8.5% since the last DXA exam. Discussion: BONE DENSITY IS LOW AT ONE OR MORE SKELETAL SITES. THE PATIENT'S BMD AND CLINICAL RISK FACTORS CONTRIBUTE TO THIS PATIENT'S INCREASED RISK OF FRACTURE. This patient's lowest T-score is low at one or more skeletal sites. It meets the World Health Organization's (WHO) criteria for ?low bone mass? (T-score between -1.0 and -2.5). The patient's 10-year risk of hip fracture as calculated by FRAX exceeds the threshold where pharmacological therapy is recommended by the National Osteoporosis Foundation (NOF). However, all treatment decisions require clinical judgment and consideration of individual patient factors, including patient preferences, comorbidities, previous drug use, risk factors not captured in the FRAX model (e.g., frailty, falls, vitamin D deficiency, increased bone turnover, interval significant decline in bone density) and possible under or overestimation of fracture risk by FRAX. The patient should follow a healthful lifestyle (good nutrition with adequate calcium and vitamin D, and appropriate weight-bearing exercise). Follow-Up: Consider a repeat BMD and Vertebral Fracture Assessment (VFA) exam in 2 years or sooner if medically necessary, to reassess this patient's status. Reported by: KALEB on 05/18/2025 9:48:00 AM. Reviewed, dictated and finalized at location A.
== END 2025-05-18 09:23 | disposition home or self-care (01) ==
LOC: MICIMG 09:23
PROVIDERS: PCP Family Medicine; Visit Provider Family Medicine
DX: M85.89 Other specified disorders of bone density and structure, multiple sites (principal); Z78.0 Asymptomatic menopausal state
CPT/HCPCS: 77080